=== PATIENT | female | born 1950 | race Caucasian/White ===

== ENCOUNTER → 2016-11-09 | Outpatient (CLI) | payer MEDICARE, BC, OTHER ==
--- NOTE | 2016-11-09 15:20 | REP ---
Clinical: History of fibrosis and smoking. Technique: Axial noncontrast images from the thoracic inlet to the upper abdomen using a low-dose lung screening technique. Comparison: Chest CT dated 10/28/2014. Findings: Biapical scarring and scattered bilateral subtle ground-glass opacities with underlying fibrosis significantly limit evaluation for pulmonary nodule(s). No obvious nodule or mass lesion is identified. No pleural effusion. No pneumothorax. Impression: Given in the scattered bilateral ground-glass opacities/fibrosis, examination may be categorized as Lung-RADS 0 and essentially ineffective for evaluating for subtle pulmonary nodules. Signed by Gerald Pemberton MD 11/09/2016 12:08 P
== END ==
LOC: M RAD 10:42
PROVIDERS: ATTEND Internal Medicine
DX: Z12.2 Encounter for screening for malignant neoplasm of respiratory organs (principal); F17.210 Nicotine dependence, cigarettes, uncomplicated

== ENCOUNTER → 2018-05-28 | Outpatient (CLI) | payer MEDICARE, BC, OTHER | LOC: M RAD 08:19 | DX: Z12.2 Encounter for screening for malignant neoplasm of respiratory organs (principal); Z87.891 Personal history of nicotine dependence; J84.10 Pulmonary fibrosis, unspecified | CPT/HCPCS: G0297 ==

== ENCOUNTER → 2019-05-28 | Outpatient (REF) | payer MEDICARE, BC, OTHER ==
[2019-05-28 12:13] LABS: HEMOGLOBIN A1c 7.3 %
[2019-05-28 12:20] LABS: ALT/SGPT 33 U/L (12-78); BLOOD UREA NITROGEN 9 MG/DL (7-18); CALCIUM LEVEL 9.6 MG/DL (8.8-10.2); CARBON DIOXIDE LEVEL 30 MEQ/L (21-32); CHLORIDE LEVEL 95 MEQ/L (98-107); CREATININE FOR GFR 0.76 MG/DL (0.55-1.30); GLOMERULAR FILTRATION RATE > 60.0 (>45); GLUCOSE, FASTING 212 MG/DL (70-100); POTASSIUM SERUM 4.3 MEQ/L (3.5-5.1); SODIUM LEVEL 132 MEQ/L (136-145)
[2019-05-28 12:21] LABS: ALBUMIN 4.1 GM/DL (3.2-5.2); BILIRUBIN,TOTAL 0.4 MG/DL (0.2-1.0); CHOLESTEROL LEVEL 121 MG/DL (<200); CHOLESTEROL RISK RATIO 2.688 (<5); HDL CHOLESTEROL 45 MG/DL (>40); LDL CHOLESTEROL 50 MG/DL (<100); MAGNESIUM LEVEL 1.8 MG/DL (1.8-2.4); NON-HDL-C 76 MG/DL; TOTAL PROTEIN 6.8 GM/DL (6.4-8.2); TRIGLYCERIDES LEVEL 131 MG/DL (<150)
[2019-05-28 12:29] LABS: CREATININE, URINE 60.9 MG/DL; MALB URINE SIEMENS 26.5 MG/L; MAU/CREAT RATIO 43.5 MCG/MG (0.0-30.0)
== END ==
LOC: M SFHCPLAZ 10:16
PROVIDERS: ATTEND Internal Medicine
DX: E10.9 Type 1 diabetes mellitus without complications (principal); E78.00 Pure hypercholesterolemia, unspecified; K21.9 Gastro-esophageal reflux disease without esophagitis
CPT/HCPCS: 36415; 80053; 80061; 82043; 83036; 83735; 90682; G0008; G0463

== ENCOUNTER → 2019-06-05 | Outpatient (CLI) | payer MEDICARE, BC, OTHER ==
--- NOTE | 2019-06-05 15:01 | REP ---
NONCONTRAST CHEST CT STUDY: HISTORY: Nicotine dependence. Low-dose lung cancer screening study. Comparison chest CT studies are from May 28 2018, November 09 2016. FINDINGS: There is a fairly widespread pattern of predominantly subpleural peripheral interstitial fibrosis consistent with COPD. This is seen in the lower lobes and upper lobes as on earlier CT studies essentially unchanged. This may affect the sensitivity of the exam for a solid and non solid nodules. No significant pulmonary nodule is appreciated. IMPRESSION: Lung RADS category 1 negative study. COPD with some pleural pulmonary fibrosis pattern moderate in degree unchanged. This may affect the sensitivity for screening exam. Electronically Signed by Fabian Sanchez MD 06/05/2019 06:27 P
== END ==
LOC: M RAD 09:23
PROVIDERS: ATTEND Internal Medicine
DX: Z12.2 Encounter for screening for malignant neoplasm of respiratory organs (principal); F17.210 Nicotine dependence, cigarettes, uncomplicated; J44.9 Chronic obstructive pulmonary disease, unspecified

== ENCOUNTER → 2019-06-17 | Outpatient (REF) | payer MEDICARE, BC, OTHER | LOC: M LAB REF 11:46 | PROVIDERS: ATTEND Radiology Diagnostic Radiology | DX: N60.21 Fibroadenosis of right breast (principal) ==

== ENCOUNTER → 2020-10-15 | Outpatient (CLI) | payer MEDICARE, BC, OTHER ==
--- NOTE | 2020-10-15 10:42 | REP ---
INDICATION: NICOTINE DEPENDENCE,UNSPECIFIED,UNCOMPLICATED. COMPARISON: 06/05/2019, 05/28/2018 TECHNIQUE: Low-dose lung screening CT protocol with 3 mm lung window images provided. FINDINGS: Lungs are adequately inflated. Bilateral apical pleuroparenchymal scarring again seen and unchanged, right slightly greater than left as before. Peripheral fibrotic changes with the pattern and distribution of findings generally unchanged from the multiple prior studies. There are no parenchymal masses to accompanies these chronic fibrotic changes. However, image 57 shows a 9.9 mm rounded focus in a zone of chronic fibrotic change peripherally in the lateral basal segment of the right lower lobe. This is a different appearance from the fibrotic changes in that same region on the previous 2 studies. No other nodules or focal consolidation. No dense consolidation with air bronchograms. No pleural effusion, calcified pleural plaque or pleural based mass. Cardiac silhouette not enlarged. Widening of the mediastinum. IMPRESSION: 1. Lung RADS category 4B suspicious. Findings for which additional diagnostic testing is recommended. There is a new solid-appearing focus 9.9 mm in zone of previously stable fibrosis lateral basal segment right lower lobe. Full chest CT with or without contrast recommended. PET-CT could also be useful. Patients with this category of finding have probability of malignancy greater than 15%. <Electronically signed by Gab Philip > 10/15/20 [id number]
== END ==
LOC: M RAD 09:32
PROVIDERS: ATTEND Internal Medicine
DX: R91.8 Other nonspecific abnormal finding of lung field (principal); F17.200 Nicotine dependence, unspecified, uncomplicated

== ENCOUNTER → 2020-11-11 | Outpatient (CLI) | payer MEDICARE, BC, OTHER ==
--- NOTE | 2020-11-11 09:09 | PFTRPT ---
Height: 65.00 Inches Weight: 174.00 Lbs BSA: 1.86 Diagnosis: J84.10 DATE: 11/11/2020 ORDERING PHYSICIAN: Dr. Siria Santamaria Pre and post bronchodilator studies have excellent technical quality. Suboptimal effort is suspected. Forced vital capacity is reduced. FEV1 is in proportion. Obstructive index is therefore normal. Expiratory limit of the flow-volume loop does suggest suboptimal performance of the required maneuver. Total lung capacity is mildly reduced. Residual volume is in proportion. Diffusing capacity although reduced is appropriate for alveolar volume and hemoglobin is acceptable at 14.2. Airway resistance and conductance are normal. IMPRESSION: Suboptimal performance of the required maneuver hampers data acquisition. Cannot rule out mild restrictive ventilatory impairment. Diffusing capacity impairment appropriate for alveolar volume. Please correlate clinically. MTDD
== END ==
LOC: M CARPUL 08:35
PROVIDERS: ATTEND Internal Medicine Pulmonary Disease
DX: J84.10 Pulmonary fibrosis, unspecified (principal)

== ENCOUNTER → 2020-11-25 | Outpatient (CLI) | payer MEDICARE, BC, OTHER ==
--- NOTE | 2020-11-25 10:34 | REP ---
INDICATION: PULMONARY FIBROSIS. COMPARISON: Chest CT with IV contrast dated 10/28/2014, low-dose lung screening chest CT dated 06/05/2019 and low-dose lung screening chest CT dated 10/15/2020. TECHNIQUE: The current study is performed without IV contrast. FINDINGS: There is a 10 mm right lower lobe lung nodule in an area of subpleural honeycombing and fibrosis on image 59, unchanged from 10/15/2020. This was not present on 06/05/2019 or 10/28/2014. There are no other lung nodules or masses. There is bilateral subpleural honeycombing compatible with chronic lung disease and fibrosis, unchanged from all prior studies. There are no acute infiltrates or effusions. There is a pre carinal enlarged azygos lobe measuring up to 13 mm short axis and there are pre tracheal mediastinal nodes that are enlarged measuring up to 13 mm short axis. However, all of those enlarged mediastinal nodes are stable and unchanged from 10/28/2014, therefore, likely benign. In the absence of IV contrast the study is insensitive for hilar lymph node enlargement. There is no axillary lymphadenopathy. The thyroid left lobe is diffusely enlarged. This is unchanged from 10/28/2014. The thyroid right lobe is not identified. This is unchanged from 10/28/2014, and suggests right hemithyroidectomy. Thyroid ultrasound follow-up might be considered. IMPRESSION: There is a 10 mm right lower lobe new lung nodule seen for the 1st time on the low-dose screening chest CT of 10/15/2020. Given the new appearance and size of this nodule follow-up PET scan might be considered for further evaluation. There is bilateral subpleural honeycombing compatible with fibrosis, unchanged from the prior studies. There are enlarged mediastinal nodes that are stable and unchanged from 10/28/2014, likely benign. I suspect the patient has a right hemithyroidectomy. The remaining left lobe appears enlarged, unchanged from 10/28/2017. Thyroid ultrasound follow-up might be considered if felt clinically indicated. <Electronically signed by Noble Villeda > 11/25/20 [id number]
== END ==
LOC: M RAD 09:30
PROVIDERS: ATTEND Internal Medicine Pulmonary Disease
DX: J84.10 Pulmonary fibrosis, unspecified (principal); R91.1 Solitary pulmonary nodule; R59.0 Localized enlarged lymph nodes; E05.90 Thyrotoxicosis, unspecified without thyrotoxic crisis or storm

== ENCOUNTER → 2021-01-24 | Outpatient (CLI) | payer MEDICARE, BC, OTHER | LOC: M PLARAD 11:41 | PROVIDERS: ATTEND Internal Medicine Pulmonary Disease | DX: R91.1 Solitary pulmonary nodule (principal); Z53.9 Procedure and treatment not carried out, unspecified reason ==

== ENCOUNTER → 2021-02-28 | Outpatient (CLI) | payer MEDICARE, BC, OTHER | LOC: M PLARAD 07:56 | PROVIDERS: ATTEND Internal Medicine Pulmonary Disease | DX: R91.1 Solitary pulmonary nodule (principal) ==

== ENCOUNTER → 2021-03-18 | Outpatient (CLI) | payer MEDICARE, BC, OTHER ==
--- NOTE | 2021-03-21 14:58 | REPMRS ---
Patient History The patient states she has not had a clinical breast exam in over a year. Family history of breast cancer in maternal aunt, breast cancer in maternal aunt, endometrial cancer under age 50 in sister. 2 benign stereotactic core biopsies of the right breast, 2019. Benign excisional biopsy of the left breast. Taking estrogen for 20 years. Patient states no breast complaints today. Patient has signed MRS History Sheet. Digital Woman Screen Mammo: March 18, 2021 - Exam #: [id number] Bilateral CC and MLO view(s) were taken. Technologist: Talia Walden, Technologist Prior study comparison: June 09, 2019, bilateral digital mammo screening bilat, performed at [facility]. FINDINGS: There are scattered fibroglandular densities. Screening. Digital screening (2D) mammography was performed bilaterally in the CC and MLO projections. Additionally, breast tomosynthesis (3D mammography) was performed bilaterally in the CC and MLO projections. Todays exam was compared to the prior exam/exams. By history, the patient has no complaints of a palpable breast abnormality or other significant breast complaints. The breasts are unchanged in size and shape. There are no billy-soft tissue densities or spiculated masses. There is no internal architectural distortion. Calcifications are again seen in the breast/breasts. Some of these are in groups but no one group appears more suspicious than any other. There are no suspicious billy-calcific clusters. Skin thickening or nipple retraction is not present. IMPRESSION: BI-RADS Category 2- Benign Findings. There is no evidence of malignant alteration of the breasts. Followup examination recommended in one year. The Volpara volumetric breast density category is B, there are scattered areas of fibroglandular densities. This mammogram was read with the assistance of [facility] [employer],an FDA approved computer aided detection system for mammography. The lifetime Tyrer-Cuzick score is 5.2 % Negative x-ray reports should not delay surgical consultation if a dominant or clinically suspicious mass is present. Not all breast cancers can be identified by mammography. Therefore, we recommend that you continue to perform regular breast self-examination and physical examination and then promptly contact your physician of any concerns or changes. Adenosis and dense breasts may obscure an underlying neoplasm. Assessment: BI-RADS/ACR category 2 mammogram. Benign Findings. Recommendation Routine screening mammogram of both breasts in 1 year. Electronically Signed By: Bal Lazar DO 03/21/21 0413
== END ==
LOC: M WHC 08:20
PROVIDERS: ATTEND Internal Medicine
DX: Z12.31 Encounter for screening mammogram for malignant neoplasm of breast (principal); Z80.3 Family history of malignant neoplasm of breast; Z80.49 Family history of malignant neoplasm of other genital organs; R92.1 Mammographic calcification found on diagnostic imaging of breast

== ENCOUNTER → 2021-03-21 | Outpatient (CLI) | payer MEDICARE, BC, OTHER ==
--- NOTE | 2021-03-21 19:00 | REP ---
INDICATION: DIAGNOSING LUNG NODULE R91.1. COMPARISON: Chest CT without IV contrast dated 11/25/2020. TECHNIQUE: The PET scan is performed with 8.81 mCi of F 18 FDG. FINDINGS: The known 10 mm right lower lobe lung nodule in an area of subpleural fibrosis on the comparison CT scan is not definitely identified on the CT scan accompanying the PET scan today. The standard uptake value in the zone of fibrosis in the area where the nodules previously identified measures 3.35, mildly hypermetabolic. However, the standard uptake value in other areas of subpleural fibrosis measure 3.08-4.39. Therefore, the uptake value related to the location of the nodule may merely be the baseline uptake in the subpleural fibrosis. No other hypermetabolic foci are identified in the lung parenchyma. Standard uptake value in the previously identified precarinal and pre tracheal lymph nodes measure 3.35-3.29, again borderline hypermetabolic. There is no interval size increase of these nodes. There are no other hypermetabolic foci in neck, chest, abdomen or pelvis. Right hemithyroidectomy is again noted. There are no hypermetabolic foci in the remaining thyroid left lobe or in the removed right thyroid lobe bed. IMPRESSION: There are no definite hypermetabolic foci. Focal zones of subpleural fibrosis are again noted in the lower lobes bilaterally. The standard uptake values within these zones of fibrosis are as described above in the uptake seen in the area where the right lower lobe lung nodules previously located may merely be the result of baseline uptake in the zones of fibrosis. There is borderline hypermetabolic uptake in the previously identified pretracheal and precarinal lymph nodes. There is no interval lymph node enlargement. Patient has a known right hemithyroidectomy. There is no uptake in the right thyroid lobe bed or in the remaining left thyroid lobe. <Electronically signed by Noble Villeda > 03/21/21 [id number]
== END ==
LOC: M PLARAD 07:29
PROVIDERS: ATTEND Internal Medicine Pulmonary Disease
DX: R91.1 Solitary pulmonary nodule (principal); J84.10 Pulmonary fibrosis, unspecified
CPT/HCPCS: 78815; A9552

== ENCOUNTER → 2021-03-24 | Outpatient (CLI) | payer BC, MEDICARE, OTHER ==
[2021-03-24 16:11] LABS: BASO # 0.1 10^3/uL (0.0-0.2); BASO % 0.6 % (0.0-1.0); EOS # 0.5 10^3/uL (0.0-0.5); EOS % 4.1 % (0.0-3.0); HEMATOCRIT 48.8 % (36.0-47.0); HEMOGLOBIN 15.5 g/dl (12.0-15.5); LYMPH # 1.5 10^3/uL (1.5-5.0); LYMPH % 13.7 % (24.0-44.0); MEAN CORPUSCULAR HEMOGLOBIN 29.8 pg (27.0-33.0); MEAN CORPUSCULAR HGB CONC 31.8 g/dl (32.0-36.5); MEAN CORPUSCULAR VOLUME 93.8 fl (80.0-96.0); MONO # 0.8 10^3/uL (0.0-0.8); MONO % 7.1 % (2.0-8.0); NEUTROPHILS # 8.1 10^3/uL (1.5-8.5); NEUTROPHILS % 73.9 % (36.0-66.0); PLATELET COUNT, AUTOMATED 279 10^3/uL (150-450)
[2021-03-24 16:18] LABS: INR 1.05; PROTHROMBIN TIME 14.1 SECONDS (12.7-14.5)
[2021-03-24 16:19] LABS: PARTIAL THROMBOPLASTIN TIME 33.5 SECONDS (25.9-37.0)
[2021-03-24 16:31] LABS: ALBUMIN 3.8 GM/DL (3.2-5.2); ALT/SGPT 30 U/L (12-78); BILIRUBIN,TOTAL 0.3 MG/DL (0.2-1.0); BLOOD UREA NITROGEN 13 MG/DL (7-18); CALCIUM LEVEL 9.2 MG/DL (8.8-10.2); CARBON DIOXIDE LEVEL 32 MEQ/L (21-32); CHLORIDE LEVEL 102 MEQ/L (98-107); CREATININE FOR GFR 0.64 MG/DL (0.55-1.30); GLOMERULAR FILTRATION RATE > 60.0 (>39); GLUCOSE, FASTING 111 MG/DL (70-100); POTASSIUM SERUM 4.1 MEQ/L (3.5-5.1); SODIUM LEVEL 138 MEQ/L (136-145); TOTAL PROTEIN 6.3 GM/DL (6.4-8.2)
== END ==
LOC: M PLALAB 12:05
PROVIDERS: ATTEND Internal Medicine Pulmonary Disease
DX: J84.10 Pulmonary fibrosis, unspecified (principal)

== ENCOUNTER → 2021-04-08 | Outpatient (CLI) | payer MEDICARE, BC, OTHER ==
--- NOTE | 2021-04-08 15:05 | REP ---
INDICATION: ABNORMAL FINDING OF LUNG FIELD COMPARISON: 11/25/2020 TECHNIQUE: Axial noncontrast images from the thoracic inlet to the upper abdomen with coronal and sagittal reformations. This CT examination was performed using the following dose reduction techniques: Automated exposure control, adjustment of mA and/or kv according to the patient's size, and use of iterative reconstruction technique. FINDINGS: Moderate to advanced subpleural fibrosis again noted and similar to prior examination along with stable mild bronchiectasis. A 10 mm nodule surrounded by fibrosis in the periphery of the right lower lobe (series 3 images 65-67) is again identified and a new smaller adjacent satellite lesion measuring 5 mm (series 3, image 67) cannot be excluded as well. No further acute consolidation, mass, effusion or pneumothorax. Mediastinal and hilar adenopathy is again noted and unchanged. Further evaluation of the mediastinum demonstrates atherosclerotic changes to the thoracic aorta and coronary arteries without aortic aneurysm or cardiomegaly. No pericardial effusion. Asymmetric enlarged left thyroid lobe is again noted. Surrounding musculoskeletal structures demonstrate age-related changes. IMPRESSION: 1. Right lower lobe pulmonary nodule is again noted and unchanged. However a new adjacent 5 mm pulmonary nodule is now also suspected. 2. Relatively stable subpleural fibrosis and adenopathy similar to prior examination. <Electronically signed by Gerald Pemberton > 04/08/21 0893
== END ==
LOC: M PLAIMG 09:18
PROVIDERS: ATTEND Internal Medicine Pulmonary Disease
DX: R91.8 Other nonspecific abnormal finding of lung field (principal); J84.10 Pulmonary fibrosis, unspecified; R59.0 Localized enlarged lymph nodes

== ENCOUNTER 2021-05-04 08:27 | Day surgery (SDC) | payer MEDICARE, BC, OTHER ==
[~2021-05-04] VITALS: Ht 165.1 cm; Wt 77.7 kg
[~2021-05-04 08:27] MED LIST: ALBUTEROL SULFATE 2.5 MG/0.5 ML INH NEB SOLN INH ONE; ATOR1TAB21; BUPR300T92; ESOM40CA35; FLUT1BLS5; INSU100V2; LEVOTAB10; LEXA1TAB2; LIDOCAINE 4% INJ 5ML AMP NEB ONE; LR 1,000 ML IV ONE; PREM0.45
[2021-05-04] MEDS ORDERED: FLUT1BLS5 INH (08:43)
[2021-05-04] MEDS ORDERED: propofoL 200 MG/20 ML VIAL As Ordered ONE (09:59)
[2021-05-04] MEDS ORDERED: ROCURONIUM BROMIDE 50 MG/5 ML VIAL As Ordered ONE (09:59)
[2021-05-04] MEDS ORDERED: LIDOCAINE 2% 100MG/5ML SDV (FOR ANES.) As Ordered ONE (09:59)
[2021-05-04] MEDS ORDERED: fentaNYL 100 MCG/2 ML INJECTION (J3010) As Ordered ONE (10:00)
[2021-05-04] MEDS ORDERED: MIDAZOLAM INJ 2MG/2ML VIAL (J2250 PER 1MG) As Ordered ONE (10:00)
--- NOTE | 2021-05-04 10:11 | ECGEPIP ---
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
[2021-05-04] MEDS ORDERED: CETACAINE SPRAY 5GM As Ordered ONE (10:45)
[2021-05-04] MEDS ORDERED: THROMBIN SOLN 5,000 UNITS VIAL As Ordered ONE (10:45)
[2021-05-04] MEDS ORDERED: LIDOCAINE 1% SDV 30ML VIAL As Ordered ONE (10:46)
[2021-05-04] MEDS ORDERED: EPINEPHrine 1MG/10ML SYRINGE 1.5IN As Ordered ONE (10:46)
[2021-05-04] MEDS ORDERED: ETOMIDATE INJ 20MG/10ML VIAL As Ordered ONE (11:22)
[2021-05-04] MEDS ORDERED: dexameTHASONE 4 MG/ML 1ML VIAL (J1100 PER 1MG) As Ordered ONE (11:31)
[2021-05-04] MEDS ORDERED: ePHEDrine SULFATE 25 MG/5 ML(5MG/ML) SYRINGE As Ordered ONE (11:43)
[2021-05-04] MEDS ORDERED: PHENYLephrine 500MCG 5ML (100MCG/ML) SYRINGE As Ordered ONE (11:45)
[2021-05-04] MEDS ORDERED: ONDANSETRON 4MG/2ML VIAL As Ordered ONE (11:48)
[2021-05-04] MEDS ORDERED: SUGAMMADEX SODIUM 500 MG/5 ML VIAL (BRIDION) As Ordered ONE ×2 (11:48→11:49)
--- NOTE | 2021-05-04 12:48 | REP ---
INDICATION: RIGHT AND LEFT, UPPER AND LOWER LOBE ABNORMALITY. COMPARISON: None. TECHNIQUE: Fluoroscopy provided for bronchoscopy FINDINGS: Fluoroscopy provided for bronchoscopy IMPRESSION: Fluoroscopy time 2 minutes 55 seconds. <Electronically signed by Noble Wisdom > 05/04/21 124
--- NOTE | 2021-05-04 13:00 | ROOR ---
Patient Name: Trihsa Newsome Procedure Date: 05/04/2021 10:44 AM Date of : 1950 Admit Type: Outpatient Age: 70 Note Status: Finalized Attending MD: Siria Santamaria MD Procedure: Bronchoscopy Indications: Right lower lobe nodule, Interstitial lung disease, Mediastinal adenopathy Providers: Siria Santamaria MD (Doctor), Tyrell Purcell Md (1st Assisting Doctor) Referring MD: 1. NO/Unknown PCP 1. NO/Unknown PCP, Admin. (Referring MD) Requesting Physician: Medicines: Lidocaine 4% via nebulizer with Albuterol 2.5 mg, Epinephrine 1 mg/10 mL topical 2 mL, Cetacaine topical, General Anesthesia Complications: No immediate complications. Estimated blood loss: Minimal Procedure: Pre-Anesthesia Assessment: - Prior to the procedure, a History and Physical was performed, and patient medications and allergies were reviewed. The patient's tolerance of previous anesthesia was also reviewed. The risks and benefits of the procedure and the sedation options and risks were discussed with the patient. All questions were answered, and informed consent was obtained. Prior Anticoagulants: The patient has taken aspirin 325mg, last dose was 7 days prior to procedure. ASA Grade Assessment: III - A patient with severe systemic disease. After reviewing the risks and benefits, the patient was deemed in satisfactory condition to undergo the procedure. - Patient identification and proposed procedure were verified prior to the procedure by the physician, the nurse, the anesthesiologist, the transcription specialist and the field radio technician. The procedure was verified in the procedure room. The Bronchoscope was introduced through the mouth, via the endotracheal tube (the patient was intubated for the procedure) and advanced to the tracheobronchial tree of both lungs. The procedure was accomplished without difficulty. The patient tolerated the procedure well. Findings: The endotracheal tube is in good position. The visualized portion of the trachea is of normal caliber. The samir is sharp. The tracheobronchial tree was examined to at least the first subsegmental level. Bronchial mucosa and anatomy are normal; there are no endobronchial lesions. There was thick white/ureña mucoid secretions noted throughout. Percepta brush sampling was performed prior to start of procedure. ChemoCentry[employer] Robotic Electromagnetic navigation bronchoscopy was performed. The CT scan was used for planning purposes. A virtual bronchoscopic image was generated using the planning software. The target in the posterior basal segment of the right lower lobe was marked. A nodule approx 1 cm in size was found and a pathway was created. After a complete airway exam, robotic navigation phase was then begun to locate the target lesion(s). Positioning centrally (in relation to the lesion) was confirmed using the Olympus radial probe US catheter. Transbronchial biopsies of a nodule were performed in the posterior basal segment of the right lower lobe using forceps and sent for routine cytology. The procedure was guided by fluoroscopy. Transbronchial biopsy technique was selected because the sampling site was not visible endoscopically. Fluoroscopy guided transbronchial brushings of a nodule were obtained in the posterior basal segment of the right lower lobe with a cytology brush and sent for routine cytology. Transbronchial brushing technique was selected because the sampling site was not visible endoscopically. Transbronchial biopsies of an area of infiltration were performed in the anterior segment of the right upper lobe using forceps and sent for routine cytology. The procedure was guided by fluoroscopy. Transbronchial biopsy technique was selected because the sampling site was not visible endoscopically. Bronchoalveolar lavage was performed in the RLL posterior basal segment (B10) of the lung and sent for cell count and differential and routine cytology. The return was blood-tinged. Mucous plugs were present in the return fluid. Bronchoalveolar lavage was performed in the RUL anterior segment (B3) of the lung and sent for aerobic culture, anaerobic culture, AFB analysis & culture and fungal analysis. The return was blood-tinged. Mucous plugs were present in the return fluid. An endobronchial ultrasound endoscope was utilized in order to assist with fine needle aspiration in the subcarinal area. Transbronchial needle aspirations of a lymph node were performed in the subcarinal area using an Olympus EBUS-TBNA 21 gauge needle and sent for routine cytology. The procedure was guided by ultrasound. Impression: - Right lower lobe nodule - Interstitial lung disease - Mediastinal adenopathy - The airway examination was normal except for thick mucoid secretions throughout - Robotic Electromagnetic navigation bronchoscopy was performed. - Transbronchial lung biopsies were performed. - Transbronchial lung biopsies were performed. - Transbronchial brushings were obtained. - Bronchoalveolar lavage was performed. - Bronchoalveolar lavage was performed. - Endobronchial ultrasound was performed. - A transbronchial needle aspiration was performed. Recommendation: - The patient will be observed post-procedure, until all discharge criteria are met. - Await test results. Procedure Code(s): --- Professional --- 95852, Bronchoscopy, rigid or flexible, including fluoroscopic guidance, when performed; with transbronchial needle aspiration biopsy(s), trachea, main stem and/or lobar bronchus(i) 00399, Bronchoscopy, rigid or flexible, including fluoroscopic guidance, when performed; with transbronchial lung biopsy(s), single lobe 59003, Bronchoscopy, rigid or flexible, including fluoroscopic guidance, when performed; with bronchial alveolar lavage 26977, Bronchoscopy, rigid or flexible, including fluoroscopic guidance, when performed; with brushing or protected brushings 50954, Bronchoscopy, rigid or flexible, including fluoroscopic guidance, when performed; with computer-assisted, image-guided navigation (List separately in addition to code for primary procedure[s]) 18926, Bronchoscopy, rigid or flexible, including fluoroscopic guidance, when performed; with transendoscopic endobronchial ultrasound (EBUS) during bronchoscopic diagnostic or therapeutic intervention(s) for peripheral lesion(s) (List separately in addition to code for primary procedure[s]) CPT copyright 2019 [employer]. All rights reserved. The codes documented in this report are preliminary and upon quartz mounter review may be revised to meet current compliance requirements. Attending Participation: I personally performed the entire procedure. Siria Santamaria MD 05/04/2021 12:59:54 PM Tyrell Purcell Md Number of Addenda: 0 Note Initiated On: 05/04/2021 10:44 AM
[2021-05-04] MEDS ORDERED: oxyCODONE 5MG TAB PO PRN (13:15)
[2021-05-04] MEDS ORDERED: ALBUTEROL SULFATE 2.5 MG/0.5 ML INH NEB SOLN INH ONE (13:15)
[2021-05-04] MEDS ORDERED: fentaNYL 100 MCG/2 ML INJECTION (J3010) IV PRN (13:15)
[2021-05-04] MEDS ORDERED: LR 1,000 ML IV SCH (13:15)
--- NOTE | 2021-05-04 13:15 | REP ---
INDICATION: POST OP EVAL IN PACU. COMPARISON: 09/30/2013 latest prior TECHNIQUE: Portable FINDINGS: The technique utilized in obtaining the radiograph has magnified the cardiac silhouette and attenuated the interstitial markings. The cardiomediastinal silhouette is within normal limits. There is a patchy opacity in the right upper lobe. The pleural angles are sharp. The osseous structures are within normal limits. IMPRESSION: Patchy right upper lobe opacity suspicious for pneumonia. PA and lateral views of the chest recommended. <Electronically signed by Bal Lazar > 05/04/21 [id number]
[2021-05-04 13:56] LABS: APPEARANCE TURBID (CLEAR); COLOR RED (COLORLESS); SOURCE RIGHT LOWER LOBE
[2021-05-04 14:13] VITALS: BP 116/57
== END 2021-05-04 14:41 | disposition home or self-care (01) ==
LOC: M SDC 08:27
PROVIDERS: ATTEND Internal Medicine Pulmonary Disease
DX: C34.31 Malignant neoplasm of lower lobe, right bronchus or lung (principal); F17.218 Nicotine dependence, cigarettes, with other nicotine-induced disorders; J84.10 Pulmonary fibrosis, unspecified; J44.9 Chronic obstructive pulmonary disease, unspecified; E78.5 Hyperlipidemia, unspecified; E10.9 Type 1 diabetes mellitus without complications; K21.9 Gastro-esophageal reflux disease without esophagitis; R21 Rash and other nonspecific skin eruption; Z79.4 Long term (current) use of insulin; G43.909 Migraine, unspecified, not intractable, without status migrainosus; Z79.899 Other long term (current) drug therapy; F32.9 Major depressive disorder, single episode, unspecified
CPT/HCPCS: 31623; 31624; 31627; 31628; 31629; 31654; 71045; 76000; 87070; 87102; 87116; 87205; 87206; 88104; 88108; 88173; 88305; 88313; 88341; 88342; 89051; 93005; J1100; J2250; J2370; J2405; J3010; S2900; U0002

== ENCOUNTER → 2021-05-24 | Outpatient (CLI) | payer MEDICARE, BC, OTHER ==
[~2021-05-24] MED LIST changes: -ALBUTEROL SULFATE 2.5 MG/0.5 ML INH NEB SOLN INH ONE; +ESCI5SOL3; +FLUT1BLS5 INH; -LIDOCAINE 4% INJ 5ML AMP NEB ONE; -LR 1,000 ML IV ONE; +NICO1DIS12; +NICO4GUM41
--- NOTE | 2021-05-24 10:25 | RADONC.CN ---
Radiation Oncology Hx/Consult Radiation Oncology Consult Date of Service: May 24, 2021 Pt Identifier Trisha Newsome is a 70 year old female current smoker with a recently diagnosed [id number] stage IA2 NSCLC of the RLL s/p EBUS and biopsies on 05/04/[address] Santamaria. She is referred for SBRT. Diagnosis/Treatment History Oncologic History 50+ pack year current 1 ppd smoker Followed by Dr. Santamaria for COPD and pulmonary fibrosis on O2. She had a CT chest on 10/15/20 which showed ILD pattern and nodular opacities in the RLL. 11/25/20 CT chest stable RLL findings 03/21/21 PET-CT mild avidity in the RLL nodule 04/08/21 Slight interval growth of the RLL nodule to 1.1 cm and new satellite 0.5 cm nodule 05/04/21 EBUS and biopsy showing NSCLC ([facility]) nodes negative PFTs 11/11/20 FVC 1.73 FEV1 1.52 FEV1/FVC 76% Interval History Trisha reports she is wearing 2L O2 at night only. Has some cough and FUENTES which is stable in time. She has no weight loss or fevers. She continues to smoke 1 ppd. She does not want to quit at this time. Past Medical History: COPD Depression IPF DMII (insulin pump) Past Surgical History: Hysterectomy Left lumpectomy/breast biopsy Thyroidectomy Carpal tunnel release Family History: Sister-breast cancer Social History: 50+ pack year current smoker Does not drink Allergies / Meds Allergies: Coded Allergies: No Known Allergies (Unverified , 05/03/21) Home Meds Reported Medications Nicotine (Nicotine Patch) 21 Mg Patch.td24 05/24/21 Nicotine Polacrilex (Nicotine Gum) 4 Mg Gum 05/24/21 Escitalopram Oxalate (Escitalopram Oxalate) 5 Mg/5 Ml Solution 05/24/21 Fluticasone Propion/Salmeterol (Fluticasone-Salmeterol 250-50) 1 Each Blst.w.dev, 1 PUFF INH DAILY 05/04/21 Insulin Lispro (Insulin Lispro) 100 Unit/1 Ml Vial 05/03/21 Escitalopram Oxalate (Lexapro) 20 Mg Tablet 05/03/21 Bupropion HCl (Bupropion Xl) 300 Mg Tab.er.24h 05/03/21 Estrogens, Conjugated (Premarin) 0.45 Mg Tablet 05/03/21 Atorvastatin Calcium (Atorvastatin Calcium) 20 Mg Tablet 05/03/21 Esomeprazole Magnesium (Esomeprazole Magnesium Dr) 40 Mg Capsule. 05/03/21 Review of Systems Constitutional: Denies: Fever, Fatigue, Weight Loss Eyes: Denies: Pain HEENT: Denies: Head Aches Skin: Denies: Rash Pulmonary: Reports: Dyspnea, Cough; Denies: Pleuritic Chest Pain Cardiovascular: Denies: Chest Pain, Palpitations, Edema Gastrointestinal: Denies: Abdominal Pain Hematologic: Denies: Bruising, Bleeding Excessively Endocrine: Denies: Cold Intolerance Musculoskeletal: Denies: Neck pain, Back pain Neurological: Denies: Weakness, Numbness Psych: Reports: Mood Normal Vital Signs Ht 65" Wt 174 lbs BMI 29 T 96.8 P 108 RR 20 BP 151/72 O2 94% Pain 0 Fatigue 0 General Exam: Alert, Cooperative, No Acute Distress Eye Exam: PERRLA, EOMI ENT EXAM: Atraumatic Neck Exam: Supple Chest Exam: Clear to auscultation, Other (Coarse inspiratory BL breath sounds) Heart Exam: Rate Normal, Regular Rhythm Abdomen Exam: Soft Extremity Exam: Negative: Edema Skin Exam: Nl turgor and temperature Neuro Exam: Normal Gait, Normal Speech, Cranial Nerves 3-12 NL Psych Exam: Mental status NL Diagnostic and Laboratory Diagnostic Review Radiologic images, relevant labs and pathology reports were personally reviewed and discussed with Ms. Newsome. Assessment and Plan Impression Ms. Newsome is a 70 year old female with a history of current smoker with a recently diagnosed [id number] stage IA2 NSCLC of the RLL s/p EBUS and biopsies on 05/04/[address] Santamaria. She is referred for SBRT. Stage RLL NSCLC [id number] stage IA2 Performance Status ECOG 1 Plan We had an extensive discussion with Ms. Newsome regarding the diagnosis at hand and available therapeutic options. She has underlying structural lung disease/COPD, she is thus not a good surgical candidate. I spent 4 minutes discussing the value of smoking cessation in her case and various quit options. She does not want to quit at this time. With respect to the lung lesion it is quite peripheral and associated with a small satellite nodule which may or may not represent the same disease process, at any rate I would encompass both the 1.1 cm primary and this second nodule in my treatment volumes. For treatment she is a good candidate for SBRT, I would give 60 Gy in 5 fractions with 4DCT/ITV/DCA planning. We discussed the logistics of receiving radiation therapy in detail including the need for a 1-time planning session. This can occur in the next 1-2 weeks. We discussed the side effects of treatment namely fatigue, and 5-10% pneumonitis risk. After discussing the risks, benefits and alternatives to radiation therapy, Ms. Newsome was amenable to pursuing radiotherapy. All questions were answered to the patient's satisfaction. We instructed the patient that if there were any questions,concerns or changes in clinical status in the interim to contact us. Recommendations SBRT to the RLL lesion 60 Gy in 5 fractions as discussed above Simulation in the next 1-2 weeks Billing Statement Total time of [47] minutes was spent preparing for the visit [3], obtaining HPI [5], examining the patient [2], reviewing diagnostic tests [5], discussing management options [21], coordinating care [3], and writing this note [8]. ANN MOREIRA MD May 24, 2021 10:25
== END ==
LOC: M ONCR 08:24
PROVIDERS: ATTEND General Practice
DX: C34.31 Malignant neoplasm of lower lobe, right bronchus or lung (principal); F17.210 Nicotine dependence, cigarettes, uncomplicated; J44.9 Chronic obstructive pulmonary disease, unspecified; F32.9 Major depressive disorder, single episode, unspecified; E11.9 Type 2 diabetes mellitus without complications; Z79.899 Other long term (current) drug therapy; Z80.3 Family history of malignant neoplasm of breast; Z90.710 Acquired absence of both cervix and uterus; Z96.41 Presence of insulin pump (external) (internal)

== ENCOUNTER 2021-06-07 13:40 | Outpatient (RCR) | payer MEDICARE, BC, OTHER | END 2021-06-19 | LOC: M ONCR 13:40 | PROVIDERS: ATTEND General Practice | DX: C34.31 Malignant neoplasm of lower lobe, right bronchus or lung (principal) ==

== ENCOUNTER 2021-06-28 09:10 | Outpatient (RCR) | payer MEDICARE, BC, OTHER | END 2021-07-19 | LOC: M ONCR 09:10 | PROVIDERS: ATTEND General Practice | DX: C34.31 Malignant neoplasm of lower lobe, right bronchus or lung (principal) ==

== ENCOUNTER → 2021-09-21 | Outpatient (CLI) | payer MEDICARE, BC, OTHER ==
[2021-09-21 09:19] LABS: ALBUMIN 3.5 GM/DL (3.2-5.2); ALT/SGPT 46 U/L (12-78); BILIRUBIN,TOTAL 0.3 MG/DL (0.2-1.0); BLOOD UREA NITROGEN 10 MG/DL (7-18); CALCIUM LEVEL 9.1 MG/DL (8.8-10.2); CARBON DIOXIDE LEVEL 33 MEQ/L (21-32); CHLORIDE LEVEL 103 MEQ/L (98-107); CREATININE FOR GFR 0.78 MG/DL (0.55-1.30); GLOMERULAR FILTRATION RATE > 60.0 (>39); GLUCOSE, FASTING 178 MG/DL (70-100); POTASSIUM SERUM 4.4 MEQ/L (3.5-5.1); SODIUM LEVEL 139 MEQ/L (136-145); TOTAL PROTEIN 7.2 GM/DL (6.4-8.2)
== END ==
LOC: M ONCR 08:33
PROVIDERS: ATTEND General Practice
DX: C34.31 Malignant neoplasm of lower lobe, right bronchus or lung (principal)

== ENCOUNTER → 2021-09-28 | Outpatient (CLI) | payer MEDICARE, BC, OTHER ==
[~2021-09-28] MED LIST changes: +ISOVUE-370 76% 100ML VIAL As Ordered ONE
== END ==
LOC: M RAD 11:25
PROVIDERS: ATTEND General Practice
DX: C34.31 Malignant neoplasm of lower lobe, right bronchus or lung (principal); R91.8 Other nonspecific abnormal finding of lung field
CPT/HCPCS: 71260; Q9967

== ENCOUNTER → 2021-10-05 | Outpatient (CLI) | payer MEDICARE, BC, OTHER ==
[~2021-10-05] MED LIST changes: -ISOVUE-370 76% 100ML VIAL As Ordered ONE
== END ==
LOC: M ONCR 14:06
PROVIDERS: ATTEND General Practice
DX: C34.31 Malignant neoplasm of lower lobe, right bronchus or lung (principal); F17.210 Nicotine dependence, cigarettes, uncomplicated; J44.9 Chronic obstructive pulmonary disease, unspecified; J84.10 Pulmonary fibrosis, unspecified; Z79.4 Long term (current) use of insulin; Z79.899 Other long term (current) drug therapy

== ENCOUNTER → 2022-02-14 | Outpatient (CLI) | payer MEDICARE, BC, OTHER | LOC: M PLAIMG 14:06 | PROVIDERS: ATTEND Internal Medicine | DX: M41.9 Scoliosis, unspecified (principal); M85.88 Other specified disorders of bone density and structure, other site; E10.9 Type 1 diabetes mellitus without complications ==

== ENCOUNTER → 2022-03-27 | Outpatient (CLI) | payer MEDICARE, BC, OTHER ==
[2022-03-27 11:35] LABS: ALBUMIN 3.4 GM/DL (3.2-5.2); ALT/SGPT 60 U/L (12-78); BILIRUBIN,TOTAL 0.3 MG/DL (0.2-1.0); BLOOD UREA NITROGEN 12 MG/DL (7-18); CALCIUM LEVEL 9.8 MG/DL (8.8-10.2); CARBON DIOXIDE LEVEL 33 MEQ/L (21-32); CHLORIDE LEVEL 99 MEQ/L (98-107); CREATININE FOR GFR 0.82 MG/DL (0.55-1.30); GLOMERULAR FILTRATION RATE > 60.0 (>39); GLUCOSE, FASTING 191 MG/DL (70-100); POTASSIUM SERUM 4.5 MEQ/L (3.5-5.1); SODIUM LEVEL 136 MEQ/L (136-145); TOTAL PROTEIN 6.9 GM/DL (6.4-8.2)
== END ==
LOC: M ONCR 10:19
PROVIDERS: ATTEND General Practice
DX: C34.31 Malignant neoplasm of lower lobe, right bronchus or lung (principal)

== ENCOUNTER → 2022-04-04 | Outpatient (CLI) | payer MEDICARE, BC, OTHER ==
[~2022-04-04] MED LIST changes: +ISOVUE-370 76% 100ML VIAL As Ordered ONE
== END ==
LOC: M RAD 08:36
PROVIDERS: ATTEND General Practice
DX: C34.31 Malignant neoplasm of lower lobe, right bronchus or lung (principal); E05.90 Thyrotoxicosis, unspecified without thyrotoxic crisis or storm; J47.9 Bronchiectasis, uncomplicated; K76.0 Fatty (change of) liver, not elsewhere classified
CPT/HCPCS: 71260; Q9967

== ENCOUNTER → 2022-04-12 | Outpatient (CLI) | payer MEDICARE, BC, OTHER ==
[~2022-04-12] MED LIST changes: -ISOVUE-370 76% 100ML VIAL As Ordered ONE
== END ==
LOC: M ONCR 12:16
PROVIDERS: ATTEND General Practice
DX: C34.31 Malignant neoplasm of lower lobe, right bronchus or lung (principal); J44.9 Chronic obstructive pulmonary disease, unspecified; J84.10 Pulmonary fibrosis, unspecified; Z92.3 Personal history of irradiation; Z87.891 Personal history of nicotine dependence

== ENCOUNTER → 2022-10-02 | Outpatient (CLI) | payer MEDICARE, BC ==
[~2022-10-02] MED LIST changes: +ISOVUE-370 76% 100ML VIAL As Ordered ONE
== END ==
LOC: M RAD 08:56
PROVIDERS: ATTEND General Practice
DX: C34.31 Malignant neoplasm of lower lobe, right bronchus or lung (principal); N28.89 Other specified disorders of kidney and ureter; J84.9 Interstitial pulmonary disease, unspecified; I70.0 Atherosclerosis of aorta; K76.0 Fatty (change of) liver, not elsewhere classified; R59.0 Localized enlarged lymph nodes
CPT/HCPCS: 71260; Q9967

== ENCOUNTER → 2022-10-18 | Outpatient (CLI) | payer MEDICARE, BC, OTHER ==
[~2022-10-18] MED LIST changes: +GABA-282 PO; -ISOVUE-370 76% 100ML VIAL As Ordered ONE
== END ==
LOC: M WHC 13:43
PROVIDERS: ATTEND Internal Medicine Hematology
DX: M81.0 Age-related osteoporosis without current pathological fracture (principal); M85.89 Other specified disorders of bone density and structure, multiple sites

== ENCOUNTER → 2022-10-18 | Outpatient (CLI) | payer MEDICARE, BC, OTHER | LOC: M ONCR 10:40 | PROVIDERS: ATTEND General Practice | DX: Z08 Encounter for follow-up examination after completed treatment for malignant neoplasm (principal); Z85.118 Personal history of other malignant neoplasm of bronchus and lung; G89.18 Other acute postprocedural pain; N28.89 Other specified disorders of kidney and ureter; Z79.51 Long term (current) use of inhaled steroids; Z79.899 Other long term (current) drug therapy; Z87.891 Personal history of nicotine dependence; Z92.3 Personal history of irradiation | CPT/HCPCS: 77080; G0463 ==

== ENCOUNTER → 2022-11-14 | Outpatient (CLI) | payer MEDICARE, BC, OTHER ==
[~2022-11-14] MED LIST changes: +ISOVUE-370 76% 100ML VIAL As Ordered ONE
== END ==
LOC: M RAD 08:55
PROVIDERS: ATTEND Physician Assistant
DX: N28.89 Other specified disorders of kidney and ureter (principal); K57.30 Diverticulosis of large intestine without perforation or abscess without bleeding; J43.9 Emphysema, unspecified; J84.9 Interstitial pulmonary disease, unspecified; R91.8 Other nonspecific abnormal finding of lung field
CPT/HCPCS: 74178; Q9967

== ENCOUNTER → 2022-11-23 | Outpatient (CLI) | payer MEDICARE, BC, OTHER ==
[~2022-11-23] MED LIST changes: +ANOR1AER INH; +ASPI81TA26 PO; -ATOR1TAB21; +ATOR1TAB21 PO; -BUPR300T92; +BUPR300T92 PO; +CALC500T68 PO; -ESOM40CA35; +ESOM40CA35 PO; -INSU100V2; +INSU100V2 SC; -ISOVUE-370 76% 100ML VIAL As Ordered ONE; +LEVOTAB10 PO; -LEXA1TAB2; +LEXA1TAB2 PO; +NITR100C2 PO; +OMEG10002 PO; -PREM0.45; +PREM0.45 PO; +REGL5TAB2 PO; +TRAM50TA2 PO; +VENTAER INH; +VITMTA PO; +[UNRECOGNIZED DRUG - CODE] PO
[2022-11-23 13:31] LABS: APPEARANCE, URINE HAZY (CLEAR); BACTERIA, URINE AUTO 1+ (NEGATIVE); BILIRUBIN, URINE AUTO NEGATIVE (NEGATIVE); BLOOD, URINE BLOOD NEGATIVE (NEGATIVE); COLOR, URINE YELLOW (YELLOW); GLUCOSE, URINE (UA) AUTO 3+ mg/dL (NEGATIVE); KETONE, URINE AUTO NEGATIVE (NEGATIVE); LEUKOCYTE ESTERASE, URINE AUTO 1+ (NEGATIVE); NITRITE, URINE AUTO POSITIVE (NEGATIVE); PROTEIN, URINE AUTO NEGATIVE (NEGATIVE); RBC, URINE AUTO 3 /HPF (0-3); SPECIFIC GRAVITY URINE AUTO 1.015 (1.002-1.035); SQUAMOUS EPITHELIAL CELL UR AU 0 /HPF (0-6); WBC, URINE AUTO 29 /HPF (0-3)
[2022-11-23 13:33] LABS: BLOOD UREA NITROGEN 16 MG/DL (9-23); CALCIUM LEVEL 8.9 MG/DL (8.3-10.6); CARBON DIOXIDE LEVEL 34 MMOL/L (20-31); CHLORIDE LEVEL 102 MMOL/L (98-107); CREATININE FOR GFR 0.66 MG/DL (0.55-1.30); GLOMERULAR FILTRATION RATE > 60.0 (>39); GLUCOSE, FASTING 306 MG/DL (74-106); POTASSIUM SERUM 4.5 MMOL/L (3.5-5.1); SODIUM LEVEL 141 MMOL/L (136-145)
[2022-11-23 13:50] LABS: HEMATOCRIT 45.1 % (36.0-47.0); HEMOGLOBIN 13.9 g/dl (12.0-15.5); MEAN CORPUSCULAR HEMOGLOBIN 30.2 pg (27.0-33.0); MEAN CORPUSCULAR HGB CONC 30.8 g/dl (32.0-36.5); MEAN CORPUSCULAR VOLUME 97.8 fl (80.0-96.0); PLATELET COUNT, AUTOMATED 217 10^3/uL (150-450); RED BLOOD COUNT 4.61 10^6/uL (4.00-5.40); WHITE BLOOD COUNT 7.8 10^3/uL (4.0-10.0)
[2022-11-23 14:03] LABS: INR 1.05; PROTHROMBIN TIME 13.9 SECONDS (12.5-14.5)
[2022-11-23 14:04] LABS: PARTIAL THROMBOPLASTIN TIME 29.7 SECONDS (24.8-34.2)
== END ==
LOC: M PLALAB 10:57
PROVIDERS: ATTEND Internal Medicine Hematology
DX: Z01.818 Encounter for other preprocedural examination (principal); R91.8 Other nonspecific abnormal finding of lung field; N28.89 Other specified disorders of kidney and ureter

== ENCOUNTER 2022-11-30 06:02 | Inpatient (IN) | payer MEDICARE, BC, OTHER ==
[~2022-11-30] VITALS: Ht 165.1 cm; Wt 75.2 kg
[2022-11-30] VITALS (9 sets, daily range): BP systolic 96–136; BP diastolic 57–76
[~2022-11-30 06:02] MED LIST changes: -NITR100C2 PO; -VENTAER INH; +ceFAZolin SOD 2 GM in IV 1 EA IV ONE
[2022-11-30] MEDS ORDERED: LR 1,000 ML IV SCH ×2 (06:20→11:20)
[2022-11-30] MEDS ORDERED: BUPIVACAINE HCL 0.25% 30ML VIAL As Ordered ONE (07:14)
[2022-11-30] MEDS ORDERED: LIDOCAINE 1% SDV 30ML VIAL As Ordered ONE (07:14)
[2022-11-30] MEDS ORDERED: propofoL 200 MG/20 ML VIAL As Ordered ONE (07:22)
[2022-11-30] MEDS ORDERED: ROCURONIUM BROMIDE 50MG/5ML VIAL As Ordered ONE ×2 (07:22→09:47)
[2022-11-30] MEDS ORDERED: LIDOCAINE 2% 100MG/5ML SDV (FOR ANES.) As Ordered ONE (07:22)
[2022-11-30] MEDS ORDERED: HYDROmorphone HCL 2MG/ML 1ML VIAL As Ordered ONE (07:22)
[2022-11-30] MEDS ORDERED: SUGAMMADEX SODIUM 500 MG/5 ML VIAL (BRIDION) As Ordered ONE (07:22)
[2022-11-30] MEDS ORDERED: MIDAZOLAM INJ 2MG/2ML VIAL As Ordered ONE (07:22)
[2022-11-30] MEDS ORDERED: ONDANSETRON 4MG 2ML VIAL As Ordered ONE (07:22)
[2022-11-30] MEDS ORDERED: fentaNYL 100 MCG/2 ML INJECTION As Ordered ONE (07:22)
[2022-11-30] MEDS ORDERED: ACETAMINOPHEN 1000MG 100ML IV BAG As Ordered ONE (07:22)
[2022-11-30] MEDS ORDERED: GLUCOSE 4GM CHEW TABLET PO PRN (07:25)
[2022-11-30] MEDS ORDERED: ACETAMINOPHEN TAB 650MG DOSE (2X325MG) PO PRN (07:25)
[2022-11-30] MEDS ORDERED: ONDANSETRON 4MG 2ML VIAL IV PRN ×2 (07:25→11:20)
[2022-11-30] MEDS ORDERED: GLUCAGON INJ 1MG VIAL SC PRN (07:25)
[2022-11-30] MEDS ORDERED: INSULIN LISPRO (NovoLOG) PER UNIT SC PRN (07:25)
[2022-11-30] MEDS ORDERED: DEXTROSE 50% 50ML SYRINGE IV PRN (07:25)
[2022-11-30] MEDS: INSULIN LISPRO (NovoLOG) PER UNIT SC SCH ×5 (07:30→20:59)
[2022-11-30] MEDS ORDERED: MANNITOL 25% 12.5GM 50ML VIAL As Ordered ONE (08:34)
[2022-11-30] MEDS: DOCUSATE SODIUM 100MG CAPSULE PO SCH ×2 (09:00→20:52)
[2022-11-30] MEDS ORDERED: INSULIN LISPRO (NovoLOG) PER UNIT As Ordered ONE (10:23)
[2022-11-30] MEDS ORDERED: KETOROLAC 60MG 2ML VIAL As Ordered ONE (11:05)
[2022-11-30] MEDS ORDERED: oxyCODONE 5MG TAB PO PRN (11:20)
[2022-11-30] MEDS ORDERED: fentaNYL 100 MCG/2 ML INJECTION IV PRN (11:20)
[2022-11-30] MEDS ORDERED: HYDROMORPHONE HCL 0.5 MG/ 0.5 ML SYRINGE IV PRN (11:20)
[2022-11-30] MEDS ORDERED: MIDAZOLAM INJ 2MG/2ML VIAL IV ONE (11:55)
[2022-11-30 12:34] LABS: HEMATOCRIT 45.4 % (36.0-47.0); HEMOGLOBIN 14.5 g/dl (12.0-15.5); MEAN CORPUSCULAR HEMOGLOBIN 30.3 pg (27.0-33.0); MEAN CORPUSCULAR HGB CONC 31.9 g/dl (32.0-36.5); MEAN CORPUSCULAR VOLUME 94.8 fl (80.0-96.0); PLATELET COUNT, AUTOMATED 266 10^3/uL (150-450); RED BLOOD COUNT 4.79 10^6/uL (4.00-5.40); WHITE BLOOD COUNT 11.1 10^3/uL (4.0-10.0)
[2022-11-30] MEDS ORDERED: METOCLOPRAMIDE INJ 10MG/2ML VIAL IV PRN (12:35)
[2022-11-30 13:06] LABS: BLOOD UREA NITROGEN 13 MG/DL (9-23); CARBON DIOXIDE LEVEL 29 MMOL/L (20-31); CHLORIDE LEVEL 102 MMOL/L (98-107); CREATININE FOR GFR 0.82 MG/DL (0.55-1.30); GLOMERULAR FILTRATION RATE > 60.0 (>39); GLUCOSE, FASTING 162 MG/DL (74-106); POTASSIUM SERUM 4.6 MMOL/L (3.5-5.1); SODIUM LEVEL 137 MMOL/L (136-145)
[2022-11-30] MEDS: ceFAZolin SOD 1 GM in D5W MINI-BAG PLUS 50 ML IV SCH ×2 (15:16→23:58)
[2022-11-30] MEDS: NS 1,000 ML IV SCH (15:18)
[2022-11-30] MEDS ORDERED: GABA-282 PO (15:22)
[2022-11-30] MEDS ORDERED: NITR100C2 PO (15:24)
[2022-11-30] MEDS ORDERED: VENTAER INH (15:24)
[2022-11-30] MEDS ORDERED: HOME MED LIST COMPLETE! XX SCH (15:25)
[2022-11-30] MEDS: GABAPENTIN 300 MG CAP PO SCH ×2 (18:18→20:52)
[2022-11-30] MEDS: PERCOCET 5MG/325MG TAB PO PRN ×2 (18:19→23:58)
[2022-12-01 02:00] VITALS: BP 119/61
[2022-12-01] MEDS: PERCOCET 5MG/325MG TAB PO PRN ×5 (04:37→21:14)
[2022-12-01 06:00] VITALS: BP 114/48
[2022-12-01 06:18] LABS: HEMATOCRIT 39.8 % (36.0-47.0); MEAN CORPUSCULAR HEMOGLOBIN 30.2 pg (27.0-33.0); MEAN CORPUSCULAR HGB CONC 31.2 g/dl (32.0-36.5); MEAN CORPUSCULAR VOLUME 96.8 fl (80.0-96.0); PLATELET COUNT, AUTOMATED 215 10^3/uL (150-450); RED BLOOD COUNT 4.11 10^6/uL (4.00-5.40); WHITE BLOOD COUNT 10.8 10^3/uL (4.0-10.0)
[2022-12-01 06:31] LABS: HEMOGLOBIN 12.4 g/dl (12.0-15.5)
[2022-12-01 06:51] VITALS: BP 112/50
[2022-12-01 06:55] LABS: BLOOD UREA NITROGEN 13 MG/DL (9-23); CALCIUM LEVEL 8.6 MG/DL (8.3-10.6); CARBON DIOXIDE LEVEL 33 MMOL/L (20-31); CHLORIDE LEVEL 99 MMOL/L (98-107); CREATININE FOR GFR 0.93 MG/DL (0.55-1.30); GLOMERULAR FILTRATION RATE > 60.0 (>39); GLUCOSE, FASTING 204 MG/DL (74-106); POTASSIUM SERUM 5.2 MMOL/L (3.5-5.1); SODIUM LEVEL 136 MMOL/L (136-145)
[2022-12-01] MEDS: NS 1,000 ML IV SCH (08:37)
[2022-12-01] MEDS: ATORVASTATIN 20 MG TAB PO SCH (08:38)
[2022-12-01] MEDS: DOCUSATE SODIUM 100MG CAPSULE PO SCH ×2 (08:38→21:13)
[2022-12-01] MEDS: GABAPENTIN 300 MG CAP PO SCH ×3 (08:38→21:13)
[2022-12-01] MEDS: ESCITALOPRAM OXALATE 10 MG TAB (LEXAPRO) PO SCH (08:38)
[2022-12-01] MEDS: INSULIN LISPRO (NovoLOG) PER UNIT SC SCH ×5 (08:39→21:44)
[2022-12-01] MEDS: buPROPion **XL** TABLET 150MG (WELLBUTRIN XL) PO SCH (08:39)
[2022-12-01] MEDS: OMEPRAZOLE 20MG CAP PO SCH (08:39)
[2022-12-01 10:00] VITALS: BP 129/64
[2022-12-01] MEDS ORDERED: PREVNAR-20 VACCINE 0.5ML SYRINGE IM.IMMUN ONE (12:00)
[2022-12-01 14:00] VITALS: BP 134/62
[2022-12-01 21:35] VITALS: BP 131/70
[2022-12-02 02:00] VITALS: BP 131/66
[2022-12-02] MEDS: PERCOCET 5MG/325MG TAB PO PRN ×3 (03:47→16:05)
[2022-12-02 05:15] VITALS: BP 106/57
[2022-12-02 06:39] LABS: HEMOGLOBIN 10.9 g/dl (12.0-15.5); MEAN CORPUSCULAR HEMOGLOBIN 30.2 pg (27.0-33.0); MEAN CORPUSCULAR HGB CONC 31.1 g/dl (32.0-36.5); PLATELET COUNT, AUTOMATED 185 10^3/uL (150-450); RED BLOOD COUNT 3.61 10^6/uL (4.00-5.40); WHITE BLOOD COUNT 14.5 10^3/uL (4.0-10.0)
[2022-12-02 06:57] LABS: BLOOD UREA NITROGEN 12 MG/DL (9-23); CALCIUM LEVEL 8.7 MG/DL (8.3-10.6); CARBON DIOXIDE LEVEL 34 MMOL/L (20-31); CHLORIDE LEVEL 98 MMOL/L (98-107); CREATININE FOR GFR 0.85 MG/DL (0.55-1.30); GLOMERULAR FILTRATION RATE > 60.0 (>39); GLUCOSE, FASTING 202 MG/DL (74-106); POTASSIUM SERUM 4.5 MMOL/L (3.5-5.1); SODIUM LEVEL 134 MMOL/L (136-145)
[2022-12-02 07:57] VITALS: BP 118/59
[2022-12-02] MEDS ORDERED: BACTRIM 160MG/800MG DS TAB PO SCH (09:00)
[2022-12-02] MEDS: buPROPion **XL** TABLET 150MG (WELLBUTRIN XL) PO SCH (09:27)
[2022-12-02] MEDS: ATORVASTATIN 20 MG TAB PO SCH (09:28)
[2022-12-02] MEDS: OMEPRAZOLE 20MG CAP PO SCH (09:28)
[2022-12-02] MEDS: ESCITALOPRAM OXALATE 10 MG TAB (LEXAPRO) PO SCH (09:28)
[2022-12-02] MEDS: DOCUSATE SODIUM 100MG CAPSULE PO SCH (09:28)
[2022-12-02] MEDS: GABAPENTIN 300 MG CAP PO SCH ×2 (09:28→16:04)
[2022-12-02] MEDS: INSULIN LISPRO (NovoLOG) PER UNIT SC SCH ×2 (09:29→12:58)
[2022-12-02 12:00] VITALS: BP 120/61
[2022-12-02] MEDS ORDERED: PERCOCET PO (14:32)
[2022-12-02] MEDS ORDERED: COLA100C5 PO (14:32)
== END 2022-12-02 17:22 | disposition home or self-care (01) | DRG 661 ==
LOC: M OR 06:02 → M MSPAV 14:43
PROVIDERS: ADMIT Urology; ATTEND Urology
PROC: 8E0W4CZ Robotic Assisted Procedure of Trunk Region, Percutaneous Endoscopic Approach (ICD-10-PCS; 2022-11-30)
PROC: 0TB04ZZ Excision of Right Kidney, Percutaneous Endoscopic Approach (ICD-10-PCS; principal; 2022-11-30 07:30)
DX: N28.89 Other specified disorders of kidney and ureter (principal); R00.0 Tachycardia, unspecified; N39.0 Urinary tract infection, site not specified; E11.9 Type 2 diabetes mellitus without complications; Z79.4 Long term (current) use of insulin; Z79.899 Other long term (current) drug therapy; Z20.822 Contact with and (suspected) exposure to COVID-19; Z88.8 Allergy status to other drugs, medicaments and biological substances

== ENCOUNTER → 2022-12-18 | Outpatient (CLI) | payer MEDICARE, BC, OTHER ==
[~2022-12-18] MED LIST changes: +COLA100C5 PO; +NITR100C2 PO; +PERCOCET PO; +VENTAER INH; -ceFAZolin SOD 2 GM in IV 1 EA IV ONE
[2022-12-18 13:31] LABS: HEMATOCRIT 38.8 % (36.0-47.0); HEMOGLOBIN 12.2 g/dl (12.0-15.5); MEAN CORPUSCULAR HEMOGLOBIN 29.9 pg (27.0-33.0); MEAN CORPUSCULAR HGB CONC 31.4 g/dl (32.0-36.5); MEAN CORPUSCULAR VOLUME 95.1 fl (80.0-96.0); PLATELET COUNT, AUTOMATED 430 10^3/uL (150-450); RED BLOOD COUNT 4.08 10^6/uL (4.00-5.40); WHITE BLOOD COUNT 12.3 10^3/uL (4.0-10.0)
[2022-12-18 13:38] LABS: BLOOD UREA NITROGEN 11 MG/DL (9-23); CALCIUM LEVEL 9.8 MG/DL (8.3-10.6); CARBON DIOXIDE LEVEL 34 MMOL/L (20-31); CHLORIDE LEVEL 101 MMOL/L (98-107); CREATININE FOR GFR 0.77 MG/DL (0.55-1.30); GLOMERULAR FILTRATION RATE > 60.0 (>39); GLUCOSE, FASTING 161 MG/DL (74-106); POTASSIUM SERUM 4.7 MMOL/L (3.5-5.1); SODIUM LEVEL 137 MMOL/L (136-145)
== END ==
LOC: M PLALAB 09:50
PROVIDERS: ATTEND Urology
DX: C64.1 Malignant neoplasm of right kidney, except renal pelvis (principal)

== ENCOUNTER → 2023-04-12 | Outpatient (CLI) | payer MEDICARE, BC, OTHER ==
[~2023-04-12] MED LIST changes: -INSU100V2 SC; +INSU100V6 SC
== END ==
LOC: M RAD 08:30
PROVIDERS: ATTEND General Practice
DX: C34.31 Malignant neoplasm of lower lobe, right bronchus or lung (principal); E05.90 Thyrotoxicosis, unspecified without thyrotoxic crisis or storm

== ENCOUNTER → 2023-04-12 | Outpatient (CLI) | payer MEDICARE, BC, OTHER ==
[~2023-04-12] MED LIST changes: +ISOVUE-370 76% 100ML VIAL As Ordered ONE
== END ==
LOC: M RAD 08:31
PROVIDERS: ATTEND Urology
DX: C64.1 Malignant neoplasm of right kidney, except renal pelvis (principal); R91.1 Solitary pulmonary nodule; C34.91 Malignant neoplasm of unspecified part of right bronchus or lung; E05.90 Thyrotoxicosis, unspecified without thyrotoxic crisis or storm
CPT/HCPCS: 71250; 74170; Q9967

== ENCOUNTER → 2023-04-20 | Outpatient (CLI) | payer MEDICARE, BC, OTHER ==
[~2023-04-20] MED LIST changes: -ISOVUE-370 76% 100ML VIAL As Ordered ONE; +OMEP1CAP73 PO; +STIO1AER INH
== END ==
LOC: M ONCR 09:47
PROVIDERS: ATTEND General Practice
DX: C34.31 Malignant neoplasm of lower lobe, right bronchus or lung (principal); C64.1 Malignant neoplasm of right kidney, except renal pelvis; R91.1 Solitary pulmonary nodule; J44.9 Chronic obstructive pulmonary disease, unspecified; J84.10 Pulmonary fibrosis, unspecified; Z71.2 Person consulting for explanation of examination or test findings; Z79.4 Long term (current) use of insulin; Z79.899 Other long term (current) drug therapy; Z87.891 Personal history of nicotine dependence; Z88.5 Allergy status to narcotic agent; Z88.8 Allergy status to other drugs, medicaments and biological substances; Z99.81 Dependence on supplemental oxygen; Z92.3 Personal history of irradiation

== ENCOUNTER → 2023-04-30 | Outpatient (CLI) | payer MEDICARE, BC, OTHER ==
[~2023-04-30] MED LIST changes: +ACETAMINOPHEN 325 MG TAB As Ordered ONE; +ACETAMINOPHEN TAB 650MG DOSE (2X325MG) PO PRN; +CALCTAB64 PO; +CLOT10TR PO; +HOME MED LIST COMPLETE! XX SCH; +LIDOCAINE 1% MDV 20ML VIAL As Ordered ONE; +RA T500C2 PO
[2023-04-30 10:47] VITALS: TEMP 98.1
[2023-04-30 11:45] VITALS: BP 149/66; O2SAT 97
== END ==
LOC: M IRPRO 07:51
PROVIDERS: ATTEND Internal Medicine Pulmonary Disease
DX: R91.8 Other nonspecific abnormal finding of lung field (principal); J95.811 Postprocedural pneumothorax; J98.11 Atelectasis

== ENCOUNTER → 2023-05-23 | Outpatient (CLI) | payer MEDICARE, BC, OTHER ==
[~2023-05-23] MED LIST changes: -ACETAMINOPHEN 325 MG TAB As Ordered ONE; -ACETAMINOPHEN TAB 650MG DOSE (2X325MG) PO PRN; -HOME MED LIST COMPLETE! XX SCH; -LIDOCAINE 1% MDV 20ML VIAL As Ordered ONE
== END ==
LOC: M ONCR 08:59
PROVIDERS: ATTEND General Practice
DX: R91.1 Solitary pulmonary nodule (principal); C34.31 Malignant neoplasm of lower lobe, right bronchus or lung; J44.9 Chronic obstructive pulmonary disease, unspecified; J84.10 Pulmonary fibrosis, unspecified; Z79.4 Long term (current) use of insulin; Z71.2 Person consulting for explanation of examination or test findings; Z79.82 Long term (current) use of aspirin; Z79.899 Other long term (current) drug therapy; Z87.891 Personal history of nicotine dependence; Z88.5 Allergy status to narcotic agent; Z88.8 Allergy status to other drugs, medicaments and biological substances; Z92.3 Personal history of irradiation; Z99.89 Dependence on other enabling machines and devices

== ENCOUNTER 2023-06-05 10:09 | Outpatient (RCR) | payer MEDICARE, BC, OTHER | END 2023-06-19 | LOC: M ONCR 10:09 | PROVIDERS: ATTEND General Practice | DX: Z51.0 Encounter for antineoplastic radiation therapy (principal); C34.32 Malignant neoplasm of lower lobe, left bronchus or lung ==

== ENCOUNTER 2023-06-27 13:09 | Outpatient (RCR) | payer MEDICARE, BC, OTHER | END 2023-07-19 | LOC: M ONCR 13:09 | PROVIDERS: ATTEND General Practice | DX: Z51.0 Encounter for antineoplastic radiation therapy (principal); C34.32 Malignant neoplasm of lower lobe, left bronchus or lung ==

== ENCOUNTER → 2023-09-20 | Outpatient (CLI) | payer MEDICARE, BC, OTHER | LOC: M RAD 12:49 | PROVIDERS: ATTEND General Practice | DX: C34.32 Malignant neoplasm of lower lobe, left bronchus or lung (principal); J43.9 Emphysema, unspecified; J47.9 Bronchiectasis, uncomplicated; I70.0 Atherosclerosis of aorta; I25.10 Atherosclerotic heart disease of native coronary artery without angina pectoris; E05.90 Thyrotoxicosis, unspecified without thyrotoxic crisis or storm ==

== ENCOUNTER → 2023-09-27 | Outpatient (CLI) | payer MEDICARE, BC, OTHER ==
[~2023-09-27] MED LIST changes: +AMIT50TA PO
== END ==
LOC: M ONCR 13:17
PROVIDERS: ATTEND General Practice
DX: C34.31 Malignant neoplasm of lower lobe, right bronchus or lung (principal); G62.0 Drug-induced polyneuropathy; Z71.2 Person consulting for explanation of examination or test findings; Z79.4 Long term (current) use of insulin; Z79.82 Long term (current) use of aspirin; Z79.899 Other long term (current) drug therapy; Z87.891 Personal history of nicotine dependence; Z88.5 Allergy status to narcotic agent; Z88.8 Allergy status to other drugs, medicaments and biological substances; Z92.3 Personal history of irradiation

== ENCOUNTER 2023-11-24 07:09 | Emergency (ER) | payer MEDICARE, OTHER ==
[~2023-11-24] VITALS: Ht 165.1 cm; Wt 80.6 kg
[2023-11-24] MEDS ORDERED: FAMO20TA PO (07:51)
[2023-11-24] MEDS ORDERED: HYDR200T46 PO (07:51)
[2023-11-24] MEDS ORDERED: PROT1TAB2 PO (07:51)
[2023-11-24] MEDS: NORCO, ANEXSIA 5/325MG TABLET (HYDROcodone/ACETAMINOPHEN) PO ONE (08:45)
[2023-11-24 09:09] LABS: BASO % 0.3 % (0.0-1.0); EOS # 0.1 10^3/uL (0.0-0.5); EOS % 0.7 % (0.0-3.0); HEMATOCRIT 40.9 % (36.0-47.0); HEMOGLOBIN 13.6 g/dl (12.0-15.5); LYMPH # 0.5 10^3/uL (1.5-5.0); LYMPH % 3.8 % (24.0-44.0); MEAN CORPUSCULAR HEMOGLOBIN 32.2 pg (27.0-33.0); MEAN CORPUSCULAR HGB CONC 33.3 g/dl (32.0-36.5); MEAN CORPUSCULAR VOLUME 96.9 fl (80.0-96.0); MONO # 0.5 10^3/uL (0.0-0.8); NEUTROPHILS # 10.9 10^3/uL (1.5-8.5); NEUTROPHILS % 90.8 % (36.0-66.0); PLATELET COUNT, AUTOMATED 222 10^3/uL (150-450); RED BLOOD COUNT 4.22 10^6/uL (4.00-5.40); WHITE BLOOD COUNT 12.1 10^3/uL (4.0-10.0)
[2023-11-24 09:32] LABS: BLOOD UREA NITROGEN 16 MG/DL (9-23); CALCIUM LEVEL 9.5 MG/DL (8.3-10.6); CARBON DIOXIDE LEVEL 30 MMOL/L (20-31); CHLORIDE LEVEL 99 MMOL/L (98-107); GLOMERULAR FILTRATION RATE > 60.0 (>39); GLUCOSE, FASTING 439 MG/DL (74-106); POTASSIUM SERUM 4.7 MMOL/L (3.5-5.1); SODIUM LEVEL 136 MMOL/L (136-145)
[2023-11-24 11:35] VITALS: TEMP 98; O2SAT 99
[2023-11-24 11:37] VITALS: BP 121/58
[2023-11-24] MEDS ORDERED: HYDR-4571 PO (11:47)
== END 2023-11-24 12:13 | disposition home or self-care (01) ==
LOC: M ED 08:54
DX: S42.351A Displaced comminuted fracture of shaft of humerus, right arm, initial encounter for closed fracture (principal); W18.30XA Fall on same level, unspecified, initial encounter; Y92.009 Unspecified place in unspecified non-institutional (private) residence as the place of occurrence of the external cause; Y93.9 Activity, unspecified; Y99.9 Unspecified external cause status; E04.1 Nontoxic single thyroid nodule; R91.8 Other nonspecific abnormal finding of lung field; I25.84 Coronary atherosclerosis due to calcified coronary lesion; E11.9 Type 2 diabetes mellitus without complications; J44.9 Chronic obstructive pulmonary disease, unspecified; E78.5 Hyperlipidemia, unspecified; Z85.118 Personal history of other malignant neoplasm of bronchus and lung; Z92.3 Personal history of irradiation; F17.200 Nicotine dependence, unspecified, uncomplicated; Z79.4 Long term (current) use of insulin; Z79.82 Long term (current) use of aspirin; Z79.899 Other long term (current) drug therapy; Z88.8 Allergy status to other drugs, medicaments and biological substances; Z88.5 Allergy status to narcotic agent

== ENCOUNTER → 2023-12-12 | Outpatient (CLI) | payer MEDICARE, OTHER ==
[~2023-12-12] MED LIST changes: +FAMO20TA PO; +HYDR-4571 PO; +HYDR200T46 PO; +PROT1TAB2 PO
== END ==
LOC: M SOG 13:29
PROVIDERS: ATTEND Physician Assistant
DX: S42.231D 3-part fracture of surgical neck of right humerus, subsequent encounter for fracture with routine healing (principal)

== ENCOUNTER → 2023-12-31 | Outpatient (CLI) | payer MEDICARE, BC ==
[~2023-12-31] MED LIST changes: +BUPR-597 PO; -BUPR300T92 PO
[2023-12-31 13:34] LABS: HEMATOCRIT 39.1 % (36.0-47.0); HEMOGLOBIN 12.5 g/dl (12.0-15.5); MEAN CORPUSCULAR HEMOGLOBIN 30.1 pg (27.0-33.0); MEAN CORPUSCULAR VOLUME 94.2 fl (80.0-96.0); PLATELET COUNT, AUTOMATED 308 10^3/uL (150-450); RED BLOOD COUNT 4.15 10^6/uL (4.00-5.40); WHITE BLOOD COUNT 11.5 10^3/uL (4.0-10.0)
[2023-12-31 13:43] LABS: ALBUMIN 3.2 G/DL (3.2-5.2); ALKALINE PHOSPHATASE 128 U/L (46-116); ALT/SGPT 31 U/L (7.0-40); AST/SGOT 30 U/L (<34); BILIRUBIN,TOTAL 0.2 MG/DL (0.3-1.2); BLOOD UREA NITROGEN 6 MG/DL (9-23); CALCIUM LEVEL 9.7 MG/DL (8.3-10.6); CARBON DIOXIDE LEVEL 36 MMOL/L (20-31); CHLORIDE LEVEL 103 MMOL/L (98-107); CHOLESTEROL LEVEL 100 MG/DL (<200); CHOLESTEROL RISK RATIO 2.61 (<5); CREATININE FOR GFR 0.71 MG/DL (0.55-1.30); FREE T4 1.14 NG/DL (0.89-1.76); GLOMERULAR FILTRATION RATE > 60.0 (>39); GLUCOSE, FASTING 51 MG/DL (74-106); HDL CHOLESTEROL 38.3 MG/DL (>40); LDL CHOLESTEROL 42.3 MG/DL (<100); NON-HDL-C 61.7 MG/DL; POTASSIUM SERUM 4.1 MMOL/L (3.5-5.1); SODIUM LEVEL 143 MMOL/L (136-145); THYROID STIMULATING HORMONE 0.397 uIU/ML (0.55-4.78); TOTAL PROTEIN 5.6 G/DL (5.7-8.2); TRIGLYCERIDES LEVEL 97 MG/DL (<150)
[2023-12-31 13:45] LABS: TOTAL 25(OH) VITAMIN D 42.7 NG/ML (20.0-100.0); VITAMIN B12 LEVEL 602 PG/ML (211-911)
[2023-12-31 13:52] LABS: HEMOGLOBIN A1c 6.4 % (4.0-6.0)
== END ==
LOC: M PLALAB 10:51
PROVIDERS: ATTEND Internal Medicine Hematology
DX: E78.00 Pure hypercholesterolemia, unspecified (principal); E10.9 Type 1 diabetes mellitus without complications; Z79.899 Other long term (current) drug therapy

== ENCOUNTER → 2024-01-02 | Outpatient (CLI) | payer MEDICARE, BC | LOC: M SOG 07:58 | PROVIDERS: ATTEND Physician Assistant | DX: S42.231D 3-part fracture of surgical neck of right humerus, subsequent encounter for fracture with routine healing (principal); M19.021 Primary osteoarthritis, right elbow ==

== ENCOUNTER → 2024-01-30 | Outpatient (CLI) | payer MEDICARE, BC | LOC: M SOG 07:53 | PROVIDERS: ATTEND Physician Assistant | DX: S42.231A 3-part fracture of surgical neck of right humerus, initial encounter for closed fracture (principal); X58.XXXA Exposure to other specified factors, initial encounter; Y92.9 Unspecified place or not applicable; Y93.9 Activity, unspecified; Y99.9 Unspecified external cause status ==

== ENCOUNTER → 2024-02-27 | Outpatient (CLI) | payer MEDICARE, BC, OTHER | LOC: M SOG 12:54 | PROVIDERS: ATTEND Physician Assistant | DX: S42.231A 3-part fracture of surgical neck of right humerus, initial encounter for closed fracture (principal); Y93.9 Activity, unspecified; Y92.9 Unspecified place or not applicable ==

== ENCOUNTER → 2024-03-24 | Outpatient (CLI) | payer MEDICARE, BC | LOC: M RAD 10:33 | PROVIDERS: ATTEND General Practice | DX: C34.32 Malignant neoplasm of lower lobe, left bronchus or lung (principal); J44.9 Chronic obstructive pulmonary disease, unspecified; J43.9 Emphysema, unspecified; J47.9 Bronchiectasis, uncomplicated; R59.0 Localized enlarged lymph nodes ==

== ENCOUNTER → 2024-03-25 | Outpatient (CLI) | payer MEDICARE, BC, OTHER ==
[~2024-03-25] MED LIST changes: +CEPH500C PO
== END ==
LOC: M WHC 09:39
PROVIDERS: ATTEND Internal Medicine Hematology
DX: Z12.31 Encounter for screening mammogram for malignant neoplasm of breast (principal); R92.333 Mammographic heterogeneous density, bilateral breasts

== ENCOUNTER → 2024-03-31 | Outpatient (CLI) | payer MEDICARE, BC, OTHER | LOC: M RAD 08:22 | PROVIDERS: ATTEND Physician Assistant | DX: S42.231D 3-part fracture of surgical neck of right humerus, subsequent encounter for fracture with routine healing (principal) ==

== ENCOUNTER → 2024-04-01 | Outpatient (CLI) | payer MEDICARE, BC, OTHER | LOC: M ONCR 13:56 | PROVIDERS: ATTEND General Practice | DX: C34.31 Malignant neoplasm of lower lobe, right bronchus or lung (principal); R91.8 Other nonspecific abnormal finding of lung field; Z87.891 Personal history of nicotine dependence; Z88.8 Allergy status to other drugs, medicaments and biological substances; Z88.5 Allergy status to narcotic agent; Z79.82 Long term (current) use of aspirin; Z79.4 Long term (current) use of insulin; Z79.899 Other long term (current) drug therapy; Z92.3 Personal history of irradiation ==

== ENCOUNTER → 2024-04-03 | Outpatient (REF) | payer MEDICARE, BC, OTHER | LOC: M LAB REF 16:50 | PROVIDERS: ATTEND Internal Medicine Pulmonary Disease | DX: R91.8 Other nonspecific abnormal finding of lung field (principal) ==

== ENCOUNTER → 2024-04-07 | Outpatient (CLI) | payer MEDICARE, BC, OTHER ==
[~2024-04-07] MED LIST changes: +ISOVUE-370 76% 100ML VIAL As Ordered ONE
== END ==
LOC: M RAD 09:31
PROVIDERS: ATTEND Urology
DX: C64.1 Malignant neoplasm of right kidney, except renal pelvis (principal); Z98.890 Other specified postprocedural states
CPT/HCPCS: 74170; Q9967

== ENCOUNTER 2024-04-09 07:15 | Day surgery (SDC) | payer MEDICARE, BC, OTHER ==
[~2024-04-09] VITALS: Ht 165.1 cm; Wt 78.2 kg
[~2024-04-09 07:15] MED LIST changes: -PROHANCE 279.3MG/ML 15ML VIAL As Ordered ONE; -PROHANCE 279.3MG/ML 5ML VIAL As Ordered ONE
[2024-04-09] MEDS ORDERED: DEXTROSE 50% 50ML SYRINGE IV PRN (08:10)
[2024-04-09] MEDS ORDERED: GLUCOSE 4 GM CHEW PO PRN (08:10)
[2024-04-09] MEDS ORDERED: GLUCAGON INJ 1MG VIAL SC PRN (08:10)
[2024-04-09] MEDS ORDERED: LIDOCAINE 1% SDV 5ML VIAL SC PRN (08:10)
[2024-04-09] MEDS ORDERED: ROCURONIUM BROMIDE 50MG/5ML VIAL As Ordered ONE (08:13)
[2024-04-09] MEDS ORDERED: SUGAMMADEX SODIUM 500 MG/5 ML VIAL (BRIDION) As Ordered ONE (08:13)
[2024-04-09] MEDS ORDERED: ONDANSETRON 4MG 2ML VIAL As Ordered ONE (08:13)
[2024-04-09] MEDS ORDERED: propofoL 200 MG/20 ML VIAL As Ordered ONE (08:13)
[2024-04-09] MEDS ORDERED: fentaNYL 100 MCG/2 ML INJECTION As Ordered ONE (08:13)
[2024-04-09] MEDS ORDERED: LIDOCAINE 2% 100MG/5ML SDV (FOR ANES.) As Ordered ONE (08:13)
[2024-04-09] MEDS ORDERED: MIDAZOLAM INJ 2MG/2ML VIAL As Ordered ONE (08:13)
[2024-04-09] MEDS: LR 1,000 ML IV SCH (08:15)
[2024-04-09] MEDS: INSULIN LISPRO (NovoLOG) PER UNIT SC PRN ×2 (08:32→10:19)
[2024-04-09] MEDS ORDERED: PHENYLephrine 500MCG 5ML (100MCG/ML) SYRINGE As Ordered ONE (09:28)
[2024-04-09] MEDS: EPINEPHrine 1MG/10ML SYRINGE 1.5IN As Ordered ONE (09:40)
[2024-04-09] MEDS: THROMBIN 5,000 UNITS VIAL As Ordered ONE (09:40)
[2024-04-09] MEDS: CETACAINE SPRAY 5GM As Ordered ONE (09:40)
[2024-04-09] MEDS ORDERED: oxyCODONE 5MG TAB PO PRN (09:50)
[2024-04-09] MEDS ORDERED: LR 1,000 ML IV SCH (09:50)
[2024-04-09] MEDS ORDERED: fentaNYL 100 MCG/2 ML INJECTION IV PRN (09:50)
[2024-04-09] MEDS ORDERED: ONDANSETRON 4MG 2ML VIAL IV PRN (09:50)
[2024-05-20] MEDS ORDERED: OXYC10TA3 PO (13:44)
[2024-05-20] MEDS ORDERED: XANA0.25 PO (13:44)
== END 2024-04-09 11:20 | disposition home or self-care (01) ==
LOC: M SDC 07:15
PROVIDERS: ATTEND Internal Medicine Pulmonary Disease
DX: R59.0 Localized enlarged lymph nodes (principal); E10.9 Type 1 diabetes mellitus without complications; G47.9 Sleep disorder, unspecified; Z88.8 Allergy status to other drugs, medicaments and biological substances; Z88.5 Allergy status to narcotic agent; Z79.899 Other long term (current) drug therapy; Z87.891 Personal history of nicotine dependence; C34.32 Malignant neoplasm of lower lobe, left bronchus or lung
CPT/HCPCS: 31629; 31652; 70553; 71045; 88173; 88305; A9576; J1100; J1815; J2250; J2371; J2405; J3010

== ENCOUNTER → 2024-04-09 | Outpatient (CLI) | payer MEDICARE, BC, OTHER ==
[~2024-04-09] MED LIST changes: -ISOVUE-370 76% 100ML VIAL As Ordered ONE; +PROHANCE 279.3MG/ML 15ML VIAL As Ordered ONE; +PROHANCE 279.3MG/ML 5ML VIAL As Ordered ONE
== END ==
LOC: M RAD 13:53
PROVIDERS: ATTEND General Practice
DX: C34.32 Malignant neoplasm of lower lobe, left bronchus or lung (principal)
CPT/HCPCS: 70553; A9576

== ENCOUNTER → 2024-05-06 | Outpatient (CLI) | payer MEDICARE, BC, OTHER | LOC: M PLARAD 10:10 | PROVIDERS: ATTEND General Practice | DX: C34.32 Malignant neoplasm of lower lobe, left bronchus or lung (principal) | CPT/HCPCS: 78815; A9552 ==

== ENCOUNTER → 2024-05-15 | Outpatient (CLI) | payer MEDICARE, BC, OTHER ==
[~2024-05-15] MED LIST changes: +GABA-1172 PO; -GABA-282 PO; +LIDOCAINE 1% MDV 20ML VIAL As Ordered ONE; +MIDAZOLAM INJ 2MG/2ML VIAL As Ordered ONE; +OXYC10TA3 PO; +XANA0.25 PO; +fentaNYL 100 MCG/2 ML INJECTION As Ordered ONE
[2024-05-15 11:34] VITALS: TEMP 98.3
[2024-05-15 11:59] LABS: HEMATOCRIT 39.5 % (36.0-47.0); HEMOGLOBIN 12.8 g/dl (12.0-15.5); MEAN CORPUSCULAR HGB CONC 32.4 g/dl (32.0-36.5); MEAN CORPUSCULAR VOLUME 95.6 fl (80.0-96.0); PLATELET COUNT, AUTOMATED 311 10^3/uL (150-450); RED BLOOD COUNT 4.13 10^6/uL (4.00-5.40); WHITE BLOOD COUNT 10.4 10^3/uL (4.0-10.0)
[2024-05-15 12:12] LABS: INR 1.08; PROTHROMBIN TIME 13.7 SECONDS (12.5-14.5)
[2024-05-15 14:05] VITALS: BP 154/75; O2SAT 100
== END ==
LOC: M IRPRO 11:02
PROVIDERS: ATTEND Urology
DX: R59.0 Localized enlarged lymph nodes (principal); C64.1 Malignant neoplasm of right kidney, except renal pelvis; C77.9 Secondary and unspecified malignant neoplasm of lymph node, unspecified
CPT/HCPCS: 38505; 77012; 85027; 85610; 88305; 99152; 99153; J2250; J3010

== ENCOUNTER 2024-05-29 15:49 | Inpatient (IN) | payer MEDICARE, BC, OTHER ==
[~2024-05-29] VITALS: Ht 165.1 cm; Wt 69.8 kg
[2024-05-29] VITALS (22 sets, daily range): BP systolic 132–199; BP diastolic 56–105; TEMP 98.7; O2SAT 90–99
[~2024-05-29 15:49] MED LIST changes: -METO1TAB87 PO
[2024-05-29] MEDS: IPRATROPIUM 0.5MG/ALBUTEROL 2.5MG INH SOL UD 3ML (DUONEB) NEB ONE ×2 (16:12→18:50)
[2024-05-29 16:28] LABS: ABG BASE EXCESS 7.3 (-2.0-2.0); ABG HCO3 33.7 MMOL/L (22.0-26.0); ABG O2 SATURATION 97.9 % (95.0-99.0); ABG PARTIAL PRESSURE CO2 56.1 mmHg (35.0-45.0); ABG PARTIAL PRESSURE O2 101.3 mmHg (75.0-100.0); ABG STANDARD HCO3 31.2 MMOL/L. (22.0-26.0); ABG TOTAL CO2 35.5 MMOL/L (23.0-31.0); ABG pH (ARTERIAL) 7.397 UNITS (7.350-7.450)
[2024-05-29 16:43] LABS: BASO % 0.3 % (0.0-1.0); EOS # 0.1 10^3/uL (0.0-0.5); EOS % 0.5 % (0.0-3.0); HEMATOCRIT 36.1 % (36.0-47.0); HEMOGLOBIN 11.9 g/dl (12.0-15.5); LYMPH # 0.6 10^3/uL (1.5-5.0); LYMPH % 4.3 % (24.0-44.0); MEAN CORPUSCULAR HEMOGLOBIN 31.2 pg (27.0-33.0); MEAN CORPUSCULAR VOLUME 94.5 fl (80.0-96.0); MONO # 0.6 10^3/uL (0.0-0.8); MONO % 4.7 % (2.0-8.0); NEUTROPHILS # 11.9 10^3/uL (1.5-8.5); NEUTROPHILS % 89.7 % (36.0-66.0); PLATELET COUNT, AUTOMATED 340 10^3/uL (150-450); RED BLOOD COUNT 3.82 10^6/uL (4.00-5.40); WHITE BLOOD COUNT 13.2 10^3/uL (4.0-10.0)
[2024-05-29] MEDS ORDERED: ASPIRIN 81MG CHEW TABLET PO ONE (17:05)
[2024-05-29] MEDS ORDERED: CLOPIDOGREL 300 MG TAB (PLAVIX) PO STA (17:05)
[2024-05-29 17:07] LABS: CK-MB VALUE MASS 2.8 NG/ML (<3.6)
[2024-05-29 17:09] LABS: ALKALINE PHOSPHATASE 103 U/L (46-116); ALT/SGPT 25 U/L (7.0-40); AST/SGOT 44 U/L (<34); BILIRUBIN,DIRECT 0.2 MG/DL (<0.4); BILIRUBIN,TOTAL 0.5 MG/DL (0.3-1.2); BLOOD UREA NITROGEN 9 MG/DL (9-23); CARBON DIOXIDE LEVEL 38 MMOL/L (20-31); CHLORIDE LEVEL 88 MMOL/L (98-107); CPK CREATINE PHOSPHOKINASE 70 U/L (34-145); GLOMERULAR FILTRATION RATE > 60.0 (>39); GLUCOSE, FASTING 204 MG/DL (74-106); POTASSIUM SERUM 4.8 MMOL/L (3.5-5.1); SODIUM LEVEL 128 MMOL/L (136-145); TOTAL PROTEIN 6.2 G/DL (5.7-8.2)
[2024-05-29] MEDS ORDERED: ISOVUE-370 76% 100ML VIAL As Ordered ONE (17:38)
[2024-05-29 17:39] LABS: INR 1.12; PROTHROMBIN TIME 14.1 SECONDS (12.5-14.5)
[2024-05-29] MEDS: methylPREDNISolone 125MG 2ML VIAL IV ONE (18:06)
[2024-05-29 18:33] LABS: CK-MB VALUE MASS 2.5 NG/ML (<3.6)
[2024-05-29 18:35] LABS: MB/CK RELATIVE INDEX 4.09 (< OR =4)
[2024-05-29] MEDS ORDERED: HOME MED LIST COMPLETE! XX SCH (21:15)
[2024-05-29] MEDS ORDERED: LIDOCAINE 1% MDV 20ML VIAL As Ordered ONE (21:56)
[2024-05-29] MEDS ORDERED: MIDAZOLAM 5MG/ML 1ML VIAL As Ordered ONE (21:56)
[2024-05-29] MEDS ORDERED: flumazeniL 0.5MG/5ML VIAL As Ordered ONE (21:56)
[2024-05-29] MEDS ORDERED: MIDAZOLAM INJ 2MG/2ML VIAL As Ordered ONE (21:59)
[2024-05-29] MEDS ORDERED: GLUCAGON INJ 1MG VIAL SC PRN (22:00)
[2024-05-29] MEDS ORDERED: DEXTROSE 50% 50ML SYRINGE IV PRN (22:00)
[2024-05-29] MEDS ORDERED: GLUCOSE 4 GM CHEW PO PRN (22:00)
[2024-05-29] MEDS: MIDAZOLAM INJ 2MG/2ML VIAL IV ONE ×2 (22:04→22:10)
[2024-05-29] MEDS ORDERED: BISACODYL 10MG SUPP PR PRN (22:30)
[2024-05-29] MEDS ORDERED: ONDANSETRON 4MG 2ML VIAL IV PRN (22:30)
[2024-05-29] MEDS: KETOROLAC 30 MG/ML 1ML VIAL IV STA (22:36)
[2024-05-29 23:11] LABS: PH BODY FLUID 7.735 UNITS (NOT ESTABLISHED); SOURCE, BODY FLUID pH PLEURAL
[2024-05-29 23:20] LABS: SOURCE, BODY FLUID ALBUMIN PLEURAL
[2024-05-29 23:24] LABS: SOURCE, BODY FLUID GLUCOSE PLEURAL; SOURCE, BODY FLUID TRIG PLEURAL; TRIGLYCERIDE, BODY FLUID 29 MG/DL (NOT ESTABLISHED)
[2024-05-29 23:25] LABS: LDH, BODY FLUID 415 U/L (NOT ESTABLISHED); SOURCE, BODY FLUID LDH PLEURAL
[2024-05-29 23:26] LABS: AMYLASE, BODY FLUID 30 U/L (NOT ESTABLISHED); CHOLESTEROL, BODY FLUID 43 MG/DL (NOT ESTABLISHED); SOURCE, BODY FLUID PLEURAL; SOURCE, BODY FLUID AMYLASE PLEURAL; SOURCE, BODY FLUID CHOL PLEURAL
[2024-05-29 23:27] LABS: APPEARANCE, BODY FLUID CLOUDY (CLEAR); PLEURAL FL COLOR AMBER (COLORLESS)
[2024-05-29] MEDS: FAMOTIDINE 20 MG TAB PO SCH (23:42)
[2024-05-29] MEDS: HYDROXYCHLOROQUINE 200 MG TAB PO SCH (23:43)
[2024-05-29] MEDS: INSULIN LISPRO (NovoLOG) PER UNIT SC SCH (23:44)
[2024-05-30] VITALS (8 sets, daily range): BP systolic 115–163; BP diastolic 57–72; TEMP 97.4–98.2; O2SAT 95–99
[2024-05-30 00:01] LABS: SOURCE, BODY FLUID TOT PROTEIN PLEURAL; TOTAL PROTEIN, BODY FLUID 3.6 G/DL (NOT ESTABLISHED)
[2024-05-30] MEDS: LIDOCAINE 1% MDV 20ML VIAL SC ONE ×2 (00:05)
[2024-05-30] MEDS: D5W/0.9% SODIUM CHLORIDE 1,000 ML IV SCH (00:09)
[2024-05-30] MEDS: PERCOCET 5MG/325MG TAB PO PRN ×2 (00:14→08:48)
[2024-05-30] MEDS: IPRATROPIUM 0.5MG/ALBUTEROL 2.5MG INH SOL UD 3ML (DUONEB) NEB SCH (01:29)
[2024-05-30] MEDS: NS 1,000 ML IV SCH (02:10)
[2024-05-30 03:15] LABS: BASO % 0.1 % (0.0-1.0); EOS % 0.1 % (0.0-3.0); HEMATOCRIT 35.8 % (36.0-47.0); HEMOGLOBIN 11.8 g/dl (12.0-15.5); LYMPH # 0.4 10^3/uL (1.5-5.0); LYMPH % 3.9 % (24.0-44.0); MEAN CORPUSCULAR HEMOGLOBIN 30.6 pg (27.0-33.0); MONO # 0.7 10^3/uL (0.0-0.8); MONO % 6.4 % (2.0-8.0); NEUTROPHILS # 9.8 10^3/uL (1.5-8.5); NEUTROPHILS % 89.2 % (36.0-66.0); PLATELET COUNT, AUTOMATED 331 10^3/uL (150-450); RED BLOOD COUNT 3.85 10^6/uL (4.00-5.40)
[2024-05-30 03:43] LABS: ALBUMIN 2.8 G/DL (3.2-5.2); ALKALINE PHOSPHATASE 102 U/L (46-116); ALT/SGPT 23 U/L (7.0-40); AST/SGOT 39 U/L (<34); BILIRUBIN,TOTAL 0.6 MG/DL (0.3-1.2); BLOOD UREA NITROGEN 10 MG/DL (9-23); CALCIUM LEVEL 9.7 MG/DL (8.3-10.6); CARBON DIOXIDE LEVEL 36 MMOL/L (20-31); CHLORIDE LEVEL 94 MMOL/L (98-107); GLOMERULAR FILTRATION RATE > 60.0 (>39); GLUCOSE, FASTING 268 MG/DL (74-106); POTASSIUM SERUM 4.7 MMOL/L (3.5-5.1); SODIUM LEVEL 131 MMOL/L (136-145)
[2024-05-30] MEDS ORDERED: KETOROLAC 30 MG/ML 1ML VIAL IV SCH (05:00)
[2024-05-30] MEDS: KETOROLAC 30 MG/ML 1ML VIAL IV SCH (05:55)
[2024-05-30] MEDS: DOCUSATE SODIUM 100MG CAPSULE PO SCH (08:46)
[2024-05-30] MEDS: ATORVASTATIN 20 MG TAB PO SCH (08:46)
[2024-05-30] MEDS: ESCITALOPRAM OXALATE 10 MG TAB (LEXAPRO) PO SCH (08:46)
[2024-05-30] MEDS: buPROPion **XL** TABLET 150MG (WELLBUTRIN XL) PO SCH (08:46)
[2024-05-30] MEDS: PANTOPRAZOLE 40MG VIAL IV SCH (08:47)
[2024-05-30] MEDS: HEPARIN SOD (PORCINE) 5000UNITS/ML 1ML VIAL/SYRINGE SC SCH (08:47)
[2024-05-30] MEDS: MOM 30ML SUSPENSION UDC PO SCH (09:00)
[2024-05-30 09:07] LABS: BLOOD UREA NITROGEN 12 MG/DL (9-23); CALCIUM LEVEL 9.5 MG/DL (8.3-10.6); CARBON DIOXIDE LEVEL 36 MMOL/L (20-31); CHLORIDE LEVEL 93 MMOL/L (98-107); CREATININE FOR GFR 0.64 MG/DL (0.55-1.30); GLOMERULAR FILTRATION RATE > 60.0 (>39); GLUCOSE, FASTING 242 MG/DL (74-106); POTASSIUM SERUM 4.8 MMOL/L (3.5-5.1); SODIUM LEVEL 133 MMOL/L (136-145)
[2024-05-30] MEDS: INSULIN LISPRO (NovoLOG) PER UNIT SC SCH ×2 (12:25→20:09)
[2024-05-30] MEDS: CEPACOL LOZENGE PO PRN (16:07)
[2024-05-30 20:38] LABS: BLOOD UREA NITROGEN 16 MG/DL (9-23); CALCIUM LEVEL 9.7 MG/DL (8.3-10.6); CARBON DIOXIDE LEVEL 35 MMOL/L (20-31); CHLORIDE LEVEL 91 MMOL/L (98-107); GLOMERULAR FILTRATION RATE > 60.0 (>39); GLUCOSE, FASTING 315 MG/DL (74-106); POTASSIUM SERUM 4.8 MMOL/L (3.5-5.1); SODIUM LEVEL 130 MMOL/L (136-145)
[2024-05-30] MEDS: SENNA 8.6 MG TAB (SENOKOT) PO SCH (21:00)
[2024-05-30] MEDS: oxyCODONE 5MG TAB PO PRN (23:38)
[2024-05-31] VITALS (8 sets, daily range): BP systolic 116–137; BP diastolic 56–63; TEMP 97.5–99.2; O2SAT 96–98
[2024-05-31] MEDS: ALPRAZolam 0.25 MG TAB PO PRN (03:50)
[2024-05-31 07:12] LABS: BASO % 0.3 % (0.0-1.0); EOS # 0.1 10^3/uL (0.0-0.5); EOS % 0.4 % (0.0-3.0); HEMATOCRIT 39.1 % (36.0-47.0); HEMOGLOBIN 12.2 g/dl (12.0-15.5); LYMPH # 0.5 10^3/uL (1.5-5.0); LYMPH % 3.2 % (24.0-44.0); MEAN CORPUSCULAR HEMOGLOBIN 29.7 pg (27.0-33.0); MEAN CORPUSCULAR HGB CONC 31.2 g/dl (32.0-36.5); MEAN CORPUSCULAR VOLUME 95.1 fl (80.0-96.0); MONO % 6.3 % (2.0-8.0); NEUTROPHILS # 14.1 10^3/uL (1.5-8.5); NEUTROPHILS % 89.3 % (36.0-66.0); PLATELET COUNT, AUTOMATED 362 10^3/uL (150-450); RED BLOOD COUNT 4.11 10^6/uL (4.00-5.40); WHITE BLOOD COUNT 15.8 10^3/uL (4.0-10.0)
[2024-05-31 07:36] LABS: BLOOD UREA NITROGEN 15 MG/DL (9-23); CALCIUM LEVEL 9.9 MG/DL (8.3-10.6); CARBON DIOXIDE LEVEL 30 MMOL/L (20-31); CHLORIDE LEVEL 90 MMOL/L (98-107); CREATININE FOR GFR 0.61 MG/DL (0.55-1.30); GLOMERULAR FILTRATION RATE > 60.0 (>39); GLUCOSE, FASTING 374 MG/DL (74-106); POTASSIUM SERUM 5.9 MMOL/L (3.5-5.1); SODIUM LEVEL 130 MMOL/L (136-145)
[2024-05-31] MEDS: FORMOTEROL FUMARATE 20 MCG/2 ML INHALATION SOLUTION (PERFOROMIST) INH SCH (08:18)
[2024-05-31] MEDS: LEVEMIR (INSULIN DETEMIR) 1 UNITS/0.01ML SC SCH (09:56)
[2024-05-31 12:11] LABS: HEMOGLOBIN A1c 6.4 % (4.0-6.0)
[2024-05-31 13:20] LABS: BLOOD UREA NITROGEN 19 MG/DL (9-23); CALCIUM LEVEL 9.6 MG/DL (8.3-10.6); CARBON DIOXIDE LEVEL 29 MMOL/L (20-31); CHLORIDE LEVEL 94 MMOL/L (98-107); CREATININE FOR GFR 0.62 MG/DL (0.55-1.30); GLOMERULAR FILTRATION RATE > 60.0 (>39); GLUCOSE, FASTING 264 MG/DL (74-106); POTASSIUM SERUM 4.7 MMOL/L (3.5-5.1); SODIUM LEVEL 131 MMOL/L (136-145)
[2024-05-31] MEDS: oxyCODONE 5MG TAB PO PRN (17:43)
[2024-06-01] VITALS (23 sets, daily range): BP systolic 109–137; BP diastolic 56–68; TEMP 97–97.9; O2SAT 90–100
[2024-06-01 06:30] LABS: BASO % 0.3 % (0.0-1.0); EOS # 0.2 10^3/uL (0.0-0.5); EOS % 1.2 % (0.0-3.0); HEMATOCRIT 37.2 % (36.0-47.0); HEMOGLOBIN 11.7 g/dl (12.0-15.5); LYMPH # 0.6 10^3/uL (1.5-5.0); LYMPH % 4.7 % (24.0-44.0); MEAN CORPUSCULAR HEMOGLOBIN 29.5 pg (27.0-33.0); MEAN CORPUSCULAR HGB CONC 31.5 g/dl (32.0-36.5); MEAN CORPUSCULAR VOLUME 93.7 fl (80.0-96.0); MONO # 1.1 10^3/uL (0.0-0.8); MONO % 8.5 % (2.0-8.0); NEUTROPHILS # 10.4 10^3/uL (1.5-8.5); NEUTROPHILS % 84.8 % (36.0-66.0); PLATELET COUNT, AUTOMATED 336 10^3/uL (150-450); RED BLOOD COUNT 3.97 10^6/uL (4.00-5.40); WHITE BLOOD COUNT 12.3 10^3/uL (4.0-10.0)
[2024-06-01 06:51] LABS: BLOOD UREA NITROGEN 18 MG/DL (9-23); CALCIUM LEVEL 9.6 MG/DL (8.3-10.6); CARBON DIOXIDE LEVEL 34 MMOL/L (20-31); CHLORIDE LEVEL 94 MMOL/L (98-107); CREATININE FOR GFR 0.61 MG/DL (0.55-1.30); GLOMERULAR FILTRATION RATE > 60.0 (>39); GLUCOSE, FASTING 338 MG/DL (74-106); POTASSIUM SERUM 5.4 MMOL/L (3.5-5.1); SODIUM LEVEL 130 MMOL/L (136-145)
[2024-06-01] MEDS: FUROSEMIDE 40MG/4ML VIAL IV ONE (12:30)
[2024-06-01] MEDS ORDERED: LEVALBUTEROL 1.25MG 0.5ML CONCENTRATE NEB INH PRN (14:55)
[2024-06-01] MEDS: METOPROLOL 5 MG/5 ML VIAL IV SCH (15:30)
[2024-06-01] MEDS: METOPROLOL TART 25 MG TABLET PO ONE (15:57)
[2024-06-01] MEDS: LEVALBUTEROL 1.25MG 0.5ML CONCENTRATE NEB INH SCH ×2 (16:00→20:29)
[2024-06-01] MEDS: ACETAMINOPHEN 325 MG TAB PO PRN (18:36)
[2024-06-01] MEDS: METOPROLOL TART 25 MG TABLET PO SCH (21:02)
[2024-06-02 03:36] VITALS: BP 115/58; TEMP 98; O2SAT 95
[2024-06-02 06:11] LABS: BASO % 0.3 % (0.0-1.0); EOS # 0.6 10^3/uL (0.0-0.5); EOS % 4.3 % (0.0-3.0); HEMATOCRIT 36.4 % (36.0-47.0); HEMOGLOBIN 11.7 g/dl (12.0-15.5); LYMPH # 0.5 10^3/uL (1.5-5.0); LYMPH % 3.9 % (24.0-44.0); MEAN CORPUSCULAR HEMOGLOBIN 30.2 pg (27.0-33.0); MEAN CORPUSCULAR HGB CONC 32.1 g/dl (32.0-36.5); MEAN CORPUSCULAR VOLUME 93.8 fl (80.0-96.0); MONO # 1.2 10^3/uL (0.0-0.8); MONO % 9.2 % (2.0-8.0); NEUTROPHILS # 10.6 10^3/uL (1.5-8.5); PLATELET COUNT, AUTOMATED 323 10^3/uL (150-450); RED BLOOD COUNT 3.88 10^6/uL (4.00-5.40)
[2024-06-02 06:32] LABS: BLOOD UREA NITROGEN 20 MG/DL (9-23); CALCIUM LEVEL 9.1 MG/DL (8.3-10.6); CARBON DIOXIDE LEVEL 35 MMOL/L (20-31); CHLORIDE LEVEL 91 MMOL/L (98-107); CREATININE FOR GFR 0.64 MG/DL (0.55-1.30); GLOMERULAR FILTRATION RATE > 60.0 (>39); GLUCOSE, FASTING 256 MG/DL (74-106); POTASSIUM SERUM 4.6 MMOL/L (3.5-5.1); SODIUM LEVEL 129 MMOL/L (136-145)
[2024-06-02 08:18] VITALS: BP 108/54; TEMP 97.3; O2SAT 98
[2024-06-02 08:53] VITALS: BP 108/54
[2024-06-02] MEDS: METOPROLOL TART 12.5 MG PER 1/2 TAB PO SCH (08:53)
[2024-06-02] MEDS ORDERED: METO1TAB87 PO (10:02)
[2024-06-02] MEDS ORDERED: oxyCODONE 5MG TAB PO PRN ×2 (10:10)
[2024-06-02 12:18] VITALS: BP 112/55; TEMP 97.7; O2SAT 95
== END 2024-06-02 16:11 | disposition home or self-care (01) | DRG 180 ==
LOC: M ED 15:49 → M ED INP 20:54 → M ICU 21:25 → M PCU 05-30 21:14
PROVIDERS: ADMIT Internal Medicine; ATTEND Internal Medicine
PROC: 0W9B30Z Drainage of Left Pleural Cavity with Drainage Device, Percutaneous Approach (ICD-10-PCS; principal; 2024-05-30)
DX: C34.12 Malignant neoplasm of upper lobe, left bronchus or lung (principal); J96.21 Acute and chronic respiratory failure with hypoxia; G92.9 Unspecified toxic encephalopathy; J91.0 Malignant pleural effusion; J44.1 Chronic obstructive pulmonary disease with (acute) exacerbation; I31.39 Other pericardial effusion (noninflammatory); E22.2 Syndrome of inappropriate secretion of antidiuretic hormone; Z66 Do not resuscitate; J84.10 Pulmonary fibrosis, unspecified; E10.65 Type 1 diabetes mellitus with hyperglycemia; I48.91 Unspecified atrial fibrillation; E87.5 Hyperkalemia; M19.90 Unspecified osteoarthritis, unspecified site; E83.52 Hypercalcemia; F32.A Depression, unspecified; K76.0 Fatty (change of) liver, not elsewhere classified; F41.9 Anxiety disorder, unspecified; I10 Essential (primary) hypertension; E78.5 Hyperlipidemia, unspecified; K21.9 Gastro-esophageal reflux disease without esophagitis; M54.50 Low back pain, unspecified; C34.11 Malignant neoplasm of upper lobe, right bronchus or lung; Z98.41 Cataract extraction status, right eye; Z98.42 Cataract extraction status, left eye; Z90.5 Acquired absence of kidney; Z87.891 Personal history of nicotine dependence; Z79.4 Long term (current) use of insulin; Z79.899 Other long term (current) drug therapy; Z88.8 Allergy status to other drugs, medicaments and biological substances; Z90.79 Acquired absence of other genital organ(s); Z85.528 Personal history of other malignant neoplasm of kidney

== ENCOUNTER → 2024-05-29 | Outpatient (CLI) | payer MEDICARE, BC, OTHER ==
[~2024-05-29] MED LIST changes: -LIDOCAINE 1% MDV 20ML VIAL As Ordered ONE; +METO1TAB87 PO; -MIDAZOLAM INJ 2MG/2ML VIAL As Ordered ONE; -fentaNYL 100 MCG/2 ML INJECTION As Ordered ONE
== END ==
LOC: M ONCR 13:29
PROVIDERS: ATTEND General Practice
DX: J96.01 Acute respiratory failure with hypoxia (principal); C34.31 Malignant neoplasm of lower lobe, right bronchus or lung; C64.1 Malignant neoplasm of right kidney, except renal pelvis; C77.9 Secondary and unspecified malignant neoplasm of lymph node, unspecified; Z79.4 Long term (current) use of insulin; Z79.82 Long term (current) use of aspirin; Z79.891 Long term (current) use of opiate analgesic; Z79.899 Other long term (current) drug therapy; Z87.891 Personal history of nicotine dependence; Z88.5 Allergy status to narcotic agent; Z88.8 Allergy status to other drugs, medicaments and biological substances; Z90.5 Acquired absence of kidney; Z92.3 Personal history of irradiation; Z99.81 Dependence on supplemental oxygen

== ENCOUNTER 2024-06-05 12:21 | Outpatient (RCR) | payer MEDICARE, BC, OTHER ==
[~2024-06-05 12:21] MED LIST changes: +METO1TAB87 PO
[2024-06-05] MEDS ORDERED: MORP1SOL4 PO (13:10)
[2024-06-09] MEDS ORDERED: MORP1SOL4 PO (08:29)
== END 2024-06-19 ==
LOC: M ONCR 12:21
PROVIDERS: ATTEND General Practice
DX: Z51.0 Encounter for antineoplastic radiation therapy (principal); C34.32 Malignant neoplasm of lower lobe, left bronchus or lung

== ENCOUNTER 2024-06-12 07:35 | Outpatient (RCR) | payer MEDICARE, BC, OTHER ==
[2024-05-29 13:50] VITALS: BP 148/70; O2SAT 96
[2024-05-29 15:39] LABS: BASO % 0.3 % (0.0-1.0); EOS # 0.1 10^3/uL (0.0-0.5); EOS % 0.8 % (0.0-3.0); HEMATOCRIT 36.9 % (36.0-47.0); LYMPH # 0.6 10^3/uL (1.5-5.0); LYMPH % 3.7 % (24.0-44.0); MEAN CORPUSCULAR HEMOGLOBIN 30.8 pg (27.0-33.0); MEAN CORPUSCULAR HGB CONC 32.5 g/dl (32.0-36.5); MEAN CORPUSCULAR VOLUME 94.6 fl (80.0-96.0); MONO # 0.8 10^3/uL (0.0-0.8); MONO % 4.8 % (2.0-8.0); NEUTROPHILS # 14.2 10^3/uL (1.5-8.5); NEUTROPHILS % 89.9 % (36.0-66.0); PLATELET COUNT, AUTOMATED 374 10^3/uL (150-450); WHITE BLOOD COUNT 15.8 10^3/uL (4.0-10.0)
[2024-05-29 16:03] LABS: INR 1.16; PARTIAL THROMBOPLASTIN TIME 30.4 SECONDS (24.8-34.2); PROTHROMBIN TIME 14.4 SECONDS (12.5-14.5)
[2024-05-29 16:05] LABS: ALBUMIN 3.1 G/DL (3.2-5.2); ALKALINE PHOSPHATASE 108 U/L (46-116); ALT/SGPT 26 U/L (7.0-40); AST/SGOT 46 U/L (<34); BILIRUBIN,TOTAL 0.5 MG/DL (0.3-1.2); BLOOD UREA NITROGEN 10 MG/DL (9-23); CALCIUM LEVEL 10.1 MG/DL (8.3-10.6); CARBON DIOXIDE LEVEL 37 MMOL/L (20-31); CHLORIDE LEVEL 88 MMOL/L (98-107); CREATININE FOR GFR 0.61 MG/DL (0.55-1.30); GLOMERULAR FILTRATION RATE > 60.0 (>39); GLUCOSE, FASTING 207 MG/DL (74-106); SODIUM LEVEL 127 MMOL/L (136-145); TOTAL PROTEIN 6.4 G/DL (5.7-8.2)
[~2024-06-12] VITALS: Ht 162.6 cm; Wt 77.0 kg
[~2024-06-12 07:35] MED LIST changes: +MORP1SOL4 PO
[2024-06-12 08:02] VITALS: BP 112/69; O2SAT 92
[2024-06-12 08:56] LABS: BASO % 0.2 % (0.0-1.0); EOS # 0.1 10^3/uL (0.0-0.5); EOS % 0.7 % (0.0-3.0); HEMATOCRIT 33.3 % (36.0-47.0); HEMOGLOBIN 10.7 g/dl (12.0-15.5); LYMPH # 0.1 10^3/uL (1.5-5.0); LYMPH % 1.2 % (24.0-44.0); MEAN CORPUSCULAR HGB CONC 32.1 g/dl (32.0-36.5); MEAN CORPUSCULAR VOLUME 93.3 fl (80.0-96.0); MONO # 1.1 10^3/uL (0.0-0.8); MONO % 8.7 % (2.0-8.0); NEUTROPHILS # 10.8 10^3/uL (1.5-8.5); NEUTROPHILS % 88.6 % (36.0-66.0); PLATELET COUNT, AUTOMATED 344 10^3/uL (150-450); RED BLOOD COUNT 3.57 10^6/uL (4.00-5.40); WHITE BLOOD COUNT 12.1 10^3/uL (4.0-10.0)
[2024-06-12 09:33] LABS: LDH LACTATE DEHYDROGENASE 268 U/L (120-246)
[2024-06-12 09:34] LABS: ALBUMIN 2.2 G/DL (3.2-5.2); ALKALINE PHOSPHATASE 185 U/L (46-116); ALT/SGPT 30 U/L (7.0-40); AST/SGOT 52 U/L (<34); BILIRUBIN,TOTAL 0.5 MG/DL (0.3-1.2); BLOOD UREA NITROGEN 8 MG/DL (9-23); CALCIUM LEVEL 9.9 MG/DL (8.3-10.6); CARBON DIOXIDE LEVEL 34 MMOL/L (20-31); CHLORIDE LEVEL 95 MMOL/L (98-107); CREATININE FOR GFR 0.46 MG/DL (0.55-1.30); GLOMERULAR FILTRATION RATE > 60.0 (>39); GLUCOSE, FASTING 197 MG/DL (74-106); POTASSIUM SERUM 4.8 MMOL/L (3.5-5.1); SODIUM LEVEL 133 MMOL/L (136-145); TOTAL PROTEIN 5.9 G/DL (5.7-8.2)
[2024-06-12 09:36] LABS: FREE T4 1.91 NG/DL (0.89-1.76); THYROID STIMULATING HORMONE 0.515 uIU/ML (0.55-4.78)
[2024-06-22] MEDS ORDERED: METO1TAB87 PO (21:36)
[2024-06-22] MEDS ORDERED: MORP1SOL4 PO (21:36)
[2024-06-22] MEDS ORDERED: GLUC1KIT INJ (21:36)
[2024-06-22] MEDS ORDERED: LEVA0.6330 INH (21:36)
[2024-06-22] MEDS ORDERED: METO5TAB2 PO (21:38)
[2024-06-24] MEDS ORDERED: FOSAPREPITANT 150 MG, VIAL 2 BAG 13MM ADAPTER 1 EACH in NS 250 ML IV SCH
[2024-06-24] MEDS ORDERED: PALONOSETRON 0.25MG/5ML VIAL (ALOXI) IV SCH
== END 2024-06-23 | disposition expired ==
LOC: M ONCM 07:35
PROVIDERS: ATTEND Specialist
DX: C34.12 Malignant neoplasm of upper lobe, left bronchus or lung (principal); C78.6 Secondary malignant neoplasm of retroperitoneum and peritoneum; G89.3 Neoplasm related pain (acute) (chronic); Z79.891 Long term (current) use of opiate analgesic; J44.9 Chronic obstructive pulmonary disease, unspecified; Z79.82 Long term (current) use of aspirin; Z79.4 Long term (current) use of insulin; E11.9 Type 2 diabetes mellitus without complications; Z51.89 Encounter for other specified aftercare
CPT/HCPCS: 36415; 80053; 83615; 84439; 84443; 85025; 85610; 85730; G0463

== ENCOUNTER 2024-06-22 15:59 | Inpatient (IN) | payer MEDICARE, BC, OTHER ==
[~2024-06-22] VITALS: Ht 165.1 cm; Wt 69.6 kg
[2024-06-22 16:35] LABS: BASO # 0.1 10^3/uL (0.0-0.2); BASO % 0.4 % (0.0-1.0); EOS # 0.2 10^3/uL (0.0-0.5); EOS % 1.2 % (0.0-3.0); HEMATOCRIT 35.1 % (36.0-47.0); HEMOGLOBIN 11.2 g/dl (12.0-15.5); LYMPH # 0.6 10^3/uL (1.5-5.0); LYMPH % 3.8 % (24.0-44.0); MEAN CORPUSCULAR HEMOGLOBIN 28.7 pg (27.0-33.0); MEAN CORPUSCULAR HGB CONC 31.9 g/dl (32.0-36.5); MONO # 1.2 10^3/uL (0.0-0.8); MONO % 7.9 % (2.0-8.0); NEUTROPHILS # 13.5 10^3/uL (1.5-8.5); NEUTROPHILS % 86.1 % (36.0-66.0); PLATELET COUNT, AUTOMATED 418 10^3/uL (150-450); WHITE BLOOD COUNT 15.7 10^3/uL (4.0-10.0)
[2024-06-22 17:02] LABS: ALBUMIN 2.1 G/DL (3.2-5.2); ALKALINE PHOSPHATASE 245 U/L (35-104); ALT/SGPT 32 U/L (7.0-40); AST/SGOT 53 U/L (<34); BILIRUBIN,DIRECT 0.3 MG/DL (<0.4); BILIRUBIN,TOTAL 0.6 MG/DL (0.3-1.2); BLOOD UREA NITROGEN 9 MG/DL (9-23); CALCIUM LEVEL 9.4 MG/DL (8.3-10.6); CARBON DIOXIDE LEVEL 33 MMOL/L (20-31); CHLORIDE LEVEL 88 MMOL/L (98-107); CREATININE FOR GFR 0.46 MG/DL (0.55-1.30); GLOMERULAR FILTRATION RATE > 60.0 (>39); GLUCOSE, FASTING 238 MG/DL (74-106); POTASSIUM SERUM 4.7 MMOL/L (3.5-5.1); SODIUM LEVEL 127 MMOL/L (136-145); TOTAL PROTEIN 6.5 G/DL (5.7-8.2)
[2024-06-22 17:04] LABS: THYROID STIMULATING HORMONE 0.669 uIU/ML (0.55-4.78); THYROXINE (T4) 11.8 UG/DL (4.5-10.9)
[2024-06-22] MEDS: cefTRIAXone SOD 1 GM in DEXTROSE 5% (D5W) ADV/MINI-BAG 50 ML IV ONE (17:09)
[2024-06-22 17:10] VITALS: O2SAT 90
[2024-06-22 17:14] LABS: ABG BASE EXCESS 6.3 (-2.0-2.0); ABG HCO3 31.3 MMOL/L (22.0-26.0); ABG O2 SATURATION 94.4 % (95.0-99.0); ABG PARTIAL PRESSURE CO2 47.2 mmHg (35.0-45.0); ABG PARTIAL PRESSURE O2 71.9 mmHg (75.0-100.0); ABG STANDARD HCO3 30.1 MMOL/L. (22.0-26.0); ABG TOTAL CO2 32.7 MMOL/L (23.0-31.0); ABG pH (ARTERIAL) 7.439 UNITS (7.350-7.450)
[2024-06-22 17:22] LABS: PROCALCITONIN 0.15 ng/ml
[2024-06-22] MEDS: AZITHROMYCIN INJ 500 MG, VIAL MATE ADAPTER 1 EACH in D5W 250 ML IV ONE (17:51)
[2024-06-22] MEDS ORDERED: ISOVUE-370 76% 100ML VIAL As Ordered ONE (17:56)
[2024-06-22] MEDS: IPRATROPIUM 0.5MG/ALBUTEROL 2.5MG INH SOL UD 3ML (DUONEB) NEB ONE (19:20)
[2024-06-22] MEDS ORDERED: ALBUTEROL SULFATE 2.5MG/0.5ML INH NEB SOLN NEB ONE (19:20)
[2024-06-22] MEDS ORDERED: IPRATROPIUM 0.5MG/ALBUTEROL 2.5MG INH SOL UD 3ML (DUONEB) As Ordered ONE (19:21)
[2024-06-22] MEDS ORDERED: MED REC IN PROGRESS XX SCH (19:35)
[2024-06-22] MEDS ORDERED: ACETAMINOPHEN 325 MG TAB PO PRN (20:05)
[2024-06-22] MEDS ORDERED: MOM 30ML SUSPENSION UDC PO PRN (20:05)
[2024-06-22] MEDS ORDERED: VANCOMYCIN HCL 500 MG in DEXTROSE 5% (D5W) MINI-BAG PLU 100 ML IV SCH (20:20)
[2024-06-22] MEDS ORDERED: GLUCOSE 4 GM CHEW PO PRN (20:50)
[2024-06-22] MEDS ORDERED: GLUCAGON INJ 1MG VIAL SC PRN (20:50)
[2024-06-22] MEDS ORDERED: DEXTROSE 50% 50ML SYRINGE IV PRN (20:50)
[2024-06-22] MEDS ORDERED: MICAFUNGIN SODIUM 100 MG in DEXTROSE 5% (D5W) MINI-BAG PLU 100 ML IV SCH (21:00)
[2024-06-22] MEDS: VANCOMYCIN 1,500 MG/300 ML IV BAG *LOAD IV ONE (21:12)
[2024-06-22] MEDS: INSULIN LISPRO (NovoLOG) PER UNIT SC SCH (21:12)
[2024-06-22] MEDS ORDERED: LEVA0.6322 INH (21:36)
[2024-06-22] MEDS ORDERED: MORP1SOL4 PO (21:36)
[2024-06-22] MEDS ORDERED: METO1TAB87 PO (21:36)
[2024-06-22] MEDS ORDERED: GLUC1KIT INJ (21:36)
[2024-06-22] MEDS ORDERED: METO5TAB2 PO (21:38)
[2024-06-22] MEDS ORDERED: HOME MED LIST COMPLETE! XX SCH (22:00)
[2024-06-22 22:06] VITALS: BP 141/62; TEMP 99.3; O2SAT 97
[2024-06-22] MEDS: DOCUSATE SODIUM 100MG CAPSULE PO SCH (23:13)
[2024-06-22] MEDS: MICAFUNGIN SODIUM 100 MG in DEXTROSE 5% (D5W) MINI-BAG PLU 100 ML IV SCH (23:25)
[2024-06-22 23:44] VITALS: O2SAT 79
[2024-06-22 23:45] VITALS: O2SAT 88
[2024-06-23] VITALS (16 sets, daily range): BP systolic 130–150; BP diastolic 50–81; TEMP 97.4–99.4; O2SAT 84–96
[2024-06-23] MEDS: PIPERACILLIN/TAZOBACTAM SOD 4.5 GM in DEXTROSE 5% (D5W) ADV/MINI-BAG 50 ML IV SCH (00:40)
[2024-06-23 00:50] LABS: ABG BASE EXCESS 3.1 (-2.0-2.0); ABG HCO3 27.2 MMOL/L (22.0-26.0); ABG O2 SATURATION 96.4 % (95.0-99.0); ABG PARTIAL PRESSURE CO2 39.4 mmHg (35.0-45.0); ABG PARTIAL PRESSURE O2 82.1 mmHg (75.0-100.0); ABG STANDARD HCO3 27.3 MMOL/L. (22.0-26.0); ABG TOTAL CO2 28.4 MMOL/L (23.0-31.0); ABG pH (ARTERIAL) 7.457 UNITS (7.350-7.450)
[2024-06-23] MEDS: RAMELTEON 8 MG TAB (ROZEREM) PO SCH (01:36)
[2024-06-23] MEDS: methylPREDNISolone 125MG 2ML VIAL IV ONE (01:37)
[2024-06-23] MEDS ORDERED: IPRATROPIUM 0.5MG/ALBUTEROL 2.5MG INH SOL UD 3ML (DUONEB) INH SCH (02:00)
[2024-06-23] MEDS: LEVALBUTEROL 1.25MG 0.5ML CONCENTRATE NEB INH PRN (02:00)
[2024-06-23] MEDS: IPRATROPIUM 0.02% SOLN 0.5MG 2.5ML NEB INH SCH (03:40)
[2024-06-23] MEDS: LEVALBUTEROL 1.25MG 0.5ML CONCENTRATE NEB INH SCH (03:40)
[2024-06-23] MEDS: FUROSEMIDE 40MG/4ML VIAL IV ONE (04:27)
[2024-06-23 06:27] LABS: BLOOD UREA NITROGEN 11 MG/DL (9-23); CALCIUM LEVEL 9.6 MG/DL (8.3-10.6); CARBON DIOXIDE LEVEL 24 MMOL/L (20-31); CHLORIDE LEVEL 85 MMOL/L (98-107); CREATININE FOR GFR 0.47 MG/DL (0.55-1.30); GLOMERULAR FILTRATION RATE > 60.0 (>39); GLUCOSE, FASTING 446 MG/DL (74-106); POTASSIUM SERUM 4.9 MMOL/L (3.5-5.1); SODIUM LEVEL 127 MMOL/L (136-145)
[2024-06-23] MEDS: MORPHINE SULFATE ORAL SOLN 10 MG/5 ML UD PO SCH (06:40)
[2024-06-23] MEDS: CEPACOL LOZENGE PO PRN (06:59)
[2024-06-23] MEDS: HumuLIN R (REGULAR) INSULIN (NovoLIN R) **100U/ML** PER UNIT IV STA (06:59)
[2024-06-23 07:20] LABS: VENOUS BASE EXCESS -5.8 (-2.0-2.0); VENOUS HCO3 20.4 MMOL/L (23.0-27.0); VENOUS O2 SATURATION 71.5 % (60.0-80.0); VENOUS PARTIAL PRESSURE CO2 43.3 mmHg (38.0-50.0); VENOUS PARTIAL PRESSURE O2 43.1 mmHg (30.0-50.0); VENOUS PH 7.292 UNITS (7.330-7.430); VENOUS STANDARD HCO3 19.2 MMOL/L; VENOUS TOTAL CO2 21.8 MMOL/L (24.0-28.0)
[2024-06-23] MEDS ORDERED: ATROPINE SULFATE 1% OPHTH SOLN 2ML BTL SL PRN (07:25)
[2024-06-23] MEDS ORDERED: HYOSCYAMINE SULFATE 0.125 MG SUBL TABLET PO PRN (07:25)
[2024-06-23] MEDS ORDERED: SCOPOLAMINE 1MG TRANSDERMAL PATCH TOP PRN (07:25)
[2024-06-23] MEDS ORDERED: ACETAMINOPHEN 325 MG TAB PO PRN (07:25)
[2024-06-23] MEDS ORDERED: FLEET ENEMA PR PRN (07:25)
[2024-06-23] MEDS ORDERED: ACETAMINOPHEN 650MG SUPP PR PRN (07:25)
[2024-06-23] MEDS ORDERED: BISACODYL 10MG SUPP PR PRN (07:25)
[2024-06-23] MEDS ORDERED: INSULIN LISPRO (NovoLOG) PER UNIT SC SCH (07:30)
[2024-06-23] MEDS ORDERED: TIOTROPIUM INHALER/CAPSULE (SPIRIVA) INH SCH (08:00)
[2024-06-23] MEDS: ESCITALOPRAM OXALATE 10 MG TAB (LEXAPRO) PO SCH (08:35)
[2024-06-23] MEDS: buPROPion **XL** TABLET 150MG (WELLBUTRIN XL) PO SCH (08:35)
[2024-06-23] MEDS: FAMOTIDINE 20 MG TAB PO SCH (08:35)
[2024-06-23] MEDS ORDERED: ENOXAPARIN 40MG/0.4ML SYRINGE (J1650 PER 10MG) SC SCH (09:00)
[2024-06-23] MEDS ORDERED: ATORVASTATIN 20 MG TAB PO SCH (09:00)
[2024-06-23] MEDS ORDERED: METOPROLOL TART 12.5 MG PER 1/2 TAB PO SCH (09:00)
[2024-06-23] MEDS ORDERED: PANTOPRAZOLE 40MG TAB (PROTONIX) PO SCH (09:00)
[2024-06-23] MEDS: LORazepam 1 MG TAB PO PRN (09:26)
[2024-06-23] MEDS: ONDANSETRON 4MG 2ML VIAL IV PRN (10:16)
[2024-06-23] MEDS: MORPHINE 2 MG/ML 1ML VIAL IV PRN (10:17)
[2024-06-26 18:07] LABS: FUNGITELL INTERPRETATION NEGATIVE (NEGATIVE); FUNGITELL, SERUM < 31 pg/mL (<60)
[2024-06-26 22:08] LABS: URINE STREP PNEUMONIAE ANTIGEN NOT DETECTED (NOT DETECT)
== END 2024-06-23 11:12 | disposition expired | DRG 193 ==
LOC: M ED 15:59 → OBSVTOIN 20:05 → M ED INP 20:05 → M PCU 21:59
PROVIDERS: ADMIT Student in an Organized Health Care Education/Training Program; ATTEND Student in an Organized Health Care Education/Training Program
DX: J18.9 Pneumonia, unspecified organism (principal); J96.21 Acute and chronic respiratory failure with hypoxia; J86.9 Pyothorax without fistula; E22.2 Syndrome of inappropriate secretion of antidiuretic hormone; E87.20 Acidosis, unspecified; J44.0 Chronic obstructive pulmonary disease with (acute) lower respiratory infection; C34.12 Malignant neoplasm of upper lobe, left bronchus or lung; D84.9 Immunodeficiency, unspecified; J91.8 Pleural effusion in other conditions classified elsewhere; C77.1 Secondary and unspecified malignant neoplasm of intrathoracic lymph nodes; B49 Unspecified mycosis; Z66 Do not resuscitate; I10 Essential (primary) hypertension; E78.5 Hyperlipidemia, unspecified; J84.10 Pulmonary fibrosis, unspecified; E10.9 Type 1 diabetes mellitus without complications; F32.A Depression, unspecified; F41.9 Anxiety disorder, unspecified; R00.0 Tachycardia, unspecified; K21.9 Gastro-esophageal reflux disease without esophagitis; M06.9 Rheumatoid arthritis, unspecified; G89.3 Neoplasm related pain (acute) (chronic); Z79.4 Long term (current) use of insulin; Z79.899 Other long term (current) drug therapy; Z79.891 Long term (current) use of opiate analgesic; Z88.8 Allergy status to other drugs, medicaments and biological substances; Z11.52 Encounter for screening for COVID-19; Z99.81 Dependence on supplemental oxygen; Z85.528 Personal history of other malignant neoplasm of kidney; Z90.5 Acquired absence of kidney; Z90.79 Acquired absence of other genital organ(s); Z92.3 Personal history of irradiation; Z87.891 Personal history of nicotine dependence